=== PATIENT | male | born 1935 | race Caucasian/White ===

== ENCOUNTER 2016-11-06 08:42 | Inpatient (IN) | payer OTHER, MEDICARE ==
[2016-11-06 09:12] LABS: BASOPHIL 0.4 % (0-2.0); EOSINOPHIL 0.9 % (0-4.5); MCH 33.1 pg (25.7-33.7); MCHC 33.9 g/dl (32.0-35.9); MEAN CELL VOLUME 97.6 fl (80-96); MEAN PLT VOLUME 8.7 fl (7.5-11.1); NEUTROPHILS 72.4 % (42.8-82.8); PLATELET COUNT 207 K/MM3 (134-434); WHITE BLOOD COUNT 5.3 K/mm3 (4.0-10.8)
--- NOTE | 2016-11-06 09:13 | PDOC ---
History of Present Illness - General Chief Complaint: CVA/TIA Stated Complaint: LEFT HAND NUMBNESS Time Seen by Provider: 11/06/16 08:46 - History of Present Illness Initial Comments: 11/06/16 09:04 History somewhat limited by pt's confusion, but history mostly from patient with some help from . 80-year-old left handed male history of acoustic neuroma, prostate Ca in remission, hypertension, ADHD, insomnia presents with left hand weakness and numbness since he woke up this morning. The patient reports waking up at 5 AM and felt that he had normal use of his hand at that time. At that point, because of his insomnia, he admits to taking clonazepam, pristic and 2 shots of vodka and went back to sleep. He does not remember what time he went back to sleep. After he woke up this morning at approx 7:45a, the patient noticed his L hand was newly numb. He then went downstairs to his study where he tripped over a wastebasket and landed onto his L hip. Denies head strike or LOC. When his heard him fall, she went to the study and found him down on the ground. At that time he was having difficulty getting up due to possible leg weakness although he does not recall if it was in one leg. Currently reports only numbness in his L hand. Denies any CP, SOB, headache, abd pain, LE weakness or edema. Not on any anticoagulation, no aspirin. PMD: Dr. Milka Pickens [phone] Allergies: NKDA Social: daily etoh, approximately 2 shots vodka every day, no tobacco or illicits. NIH Stroke Scale - Last Known Well Date/Time & Onset Date Last Known Well: 11/06/16 Time Last Known Well: 05:00 - Initial Evaluation Level of consciousness: Alert Ask patient the month and their age: Answers both correctly Ask patient to open & close eyes; make fist and let go: Obeys both correctly Best gaze (horizontal eye movement): Normal Visual field testing: No visual field loss Facial paresis (Show teeth/raise eyebrows/close eyes tight): Normal symmetrical movement Motor Function: Left Arm: Normal Motor Function: Right Arm: Normal (extends arm 90 (or 45) degrees for 10 seconds without drift Motor Function: Left Leg: Normal (extends leg 30 degrees for 5 seconds without drift) Motor Function: Right Leg: Normal (extends leg 30 degrees for 5 seconds without drift) Limb Ataxia: No ataxia Sensory(Use pinprick test arms,legs,trunk,face/side to side): Mild to moderate decrease in sensation Best language (Describe picture, name items, read sentences): No Aphasia Dysarthria (read several words): Normal articulation Extinction and Inattention: No abnormality - Total Score NIH Stroke Scale Score: 1 Past History - Past Medical History Allergies/Adverse Reactions: Allergies Allergy/AdvReac Type Severity Reaction Status Date / Time No Known Allergies Allergy Verified 11/06/16 08:43 Home Medications: Ambulatory Orders Amphet Asp/Amphet/D-Amphet [Adderall 10 mg Tablet] 10 mg PO TID 08/21/13 Amphet Asp/Amphet/D-Amphet [Adderall 30 mg Tablet] 30 mg PO DAILY 08/21/13 Gabapentin [Neurontin -] 300 mg PO HS 08/21/13 Clonazepam 1.5 mg PO HS 09/04/14 Desvenlafaxine Succinate [Pristiq] 100 mg PO DAILY 09/04/14 Lisinopril 0 mg PO ASDIR 11/06/16 HTN: Yes Psychiatric Problems: Yes (ADD, DEPRESSION) - Immunization History Td Vaccination: No - Psycho/Social/Smoking Cessation Hx Anxiety: Yes Suicidal Ideation: No Smoking History: Former smoker Have you smoked in the past 12 months: No Number of Cigarettes Smoked Daily: 0 If you are a former smoker, when did you quit?: YEARS AGO Information on smoking cessation initiated: No Hx Alcohol Use: No Drug/Substance Use Hx: No Substance Use Type: None Review of Systems - Review of Systems Comments:: 11/06/16 12:27 GENERAL/CONSTITUTIONAL: No fever or chills. No weakness. HEAD, EYES, EARS, NOSE AND THROAT: No change in vision. No ear pain or discharge. No sore throat. CARDIOVASCULAR: No chest pain or shortness of breath. RESPIRATORY: No cough, wheezing, or hemoptysis. GASTROINTESTINAL: No nausea, vomiting, diarrhea or constipation. GENITOURINARY: No dysuria, frequency, or change in urination. MUSCULOSKELETAL: No joint or muscle swelling or pain. No neck or back pain. SKIN: No rash NEUROLOGIC: No headache, vertigo, loss of consciousness, +L handed weakness & numbness ENDOCRINE: No increased thirst. No abnormal weight change. HEMATOLOGIC/LYMPHATIC: No anemia, easy bleeding, or history of blood clots. ALLERGIC/IMMUNOLOGIC: No hives or skin allergy. *Physical Exam - Vital Signs Last Vital Signs Temp Pulse Resp BP Pulse Ox 87 18 115/86 100 11/06/16 08:43 11/06/16 08:43 11/06/16 08:43 11/06/16 08:43 - Physical Exam Comments: 11/06/16 12:28 GENERAL: Awake, alert, and fully oriented x3, in no acute distress. HEAD: No signs of trauma EYES: PERRLA, EOMI, sclera anicteric, conjunctiva clear ENT: Auricles normal inspection, hearing grossly normal, nares patent, oropharynx clear without exudates. Moist mucosa NECK: Normal ROM, supple, no lymphadenopathy, JVD, or masses LUNGS: Breath sounds equal, clear to auscultation bilaterally. No wheezes, and no crackles HEART: irregularly irregular, rate 91, no murmurs, rubs or gallops ABDOMEN: Soft, nontender, normoactive bowel sounds. No guarding, no rebound. No masses EXTREMITIES: Normal range of motion, no edema. No clubbing or cyanosis. No cords, erythema, or tenderness. brusing to L buttock with no deformities NEUROLOGICAL: Circumstantial speech , cranial nerves intact, negative pronator drift, 4+/5 L hand toy painter strength, +agraphia, 5/5 strength in remaining extremities, decreased sensation to light touch in L hand in all 5 fingers, normal sensation to light tough in remaining extremities, normal cerebellar exam , antalgic gait favoring LLE, normal reflexes and tone SKIN: L flank with new appearing superfical hemostatic 1cm abrasion, no bruising. Heart Score/ECG Review - ECG Intrepretation Comment:: 11/06/16 12:39 Twelve-lead EKG was performed and reviewed by me. Atrial fibrillation, rate 91. Normal axis. No ST elevations ED Treatment Course - LABORATORY CBC & Chemistry Diagram: 11/06/16 09:05 11/06/16 09:05 - RADIOLOGY Radiology Studies Ordered: Category Date Time Status CERVICAL SPINE CT W/O CONTR [CT] Stat CT Scan 11/06/16 09:[address] (STROKE) [CT] Stat CT Scan 11/06/16 08:47 Ordered CHEST X-RAY PORTABLE* [RAD] Stat Radiology 11/06/16 08:49 Ordered Medical Decision Making - Critical Care Time Total Critical Care Time (minutes): 45 Critical Care Statement: The care of this patient involved high complexity decision making to prevent further life threatening deterioration of the patient 's condition and/or to evaluate & treat vital organ system(s) failure or risk of failure. - Medical Decision Making 11/06/16 9:40 80yo M hx acoustic neuroma, prostate ca in remission, HTN, insomnia, ADHD p/w L hand numbness since waking up this morning at 7:45am. Last known normal was 5am. Stroke scale 1 for sensory deficit. Not a tpa candidate as almost out of window, and for low NIHSS. Pt also in new AFib on exam. Differential includes ischemic stroke vs hemorrhagic stroke vs radiculopathy. -[facility] -labs -IV -monitor -neuro c/s -call Dr. Pickens -admit 11/06/16 12:51 CT of the head negative for acute stroke however with some older disease. Patient was given full dose of aspirin and 80 mg of Lipitor. Patient was also given a tetanus shot given the new looking abrasion on his left flank. I spoke with Dr. Spencer from neurology who will see the patient today. I also ordered an MRI for further stroke evaluation. Chest x-ray was clear. Given the patient' s bruise on his left buttock and antalgic gait on arrival to the emergency department he is pending pelvis and femur films to evaluate for a fracture. Once the MRI is completed, the patient will require anticoagulation for his atrial fibrillation given his elevated chads2 score. I spoke with Dr. Pickens, the patient's primary care doctor and updated her on the patient. She agrees with our plan. The patient is admitted to Dr. Scott to a telemetry bed. *DC/Admit/Observation/Transfer Diagnosis at time of Disposition: Weakness of hand - Discharge Dispostion Condition at time of disposition: Stable Admit: Yes - Attestations Physician Attestion: 11/06/16 12:56 I, Dr. Clinton Lozoya MD, attest that this document has been prepared under my direction and personally reviewed by me in its entirety. I further attest, that it accurately reflects all work, treatment, procedures and medical decision -making performed by me.
[2016-11-06 09:26] LABS: INR 0.93 (0.82-1.09); PROTHROMBIN TIME (PATIENT) 10.4 SEC (10.2-13.0)
[2016-11-06] MEDS: SODIUM CHLORIDE 1,000 ML IV SCH (09:30)
[2016-11-06 09:55] LABS: ALBUMIN 3.8 g/dl (3.5-5.0); ALK PHOS 91 U/L (32-92); ANION GAP 9 (8-16); BILIRUBIN,TOTAL 0.7 mg/dl (0.2-1.0); CHOLESTEROL 213 mg/dl; CO2 27 mmol/L (22-28); CREATININE 1.2 mg/dl (0.6-1.3); GLUCOSE,RANDOM 114 mg/dl (74-106); SGOT/AST 19 U/L (10-42); SGPT/ALT 15 U/L (10-40); TOT PROT 6.5 g/dl (6.4-8.3)
[2016-11-06 09:58] LABS: TROPONIN I 0.02 ng/ml (0.00-0.05)
[2016-11-06 09:59] LABS: CPK 114 IU/L (39-308)
[2016-11-06] MEDS ORDERED: ATORVASTATIN CA 80 MG TABLET (FP) PO ONE (10:21)
[2016-11-06] MEDS ORDERED: ASPIRIN 325 MG TABLET PO ONE (10:21)
[2016-11-06] MEDS ORDERED: ATORVASTATIN CA 80 MG TABLET (FP) ONE (10:28)
[2016-11-06] MEDS ORDERED: ASPIRIN 81 MG CHEWABLE TABLETS ONE (10:28)
[2016-11-06 11:14] LABS: PH,URINE 7.5 (4.5-8); URINE APPEARANCE Clear; URINE BILIRUBIN Negative (NEGATIVE); URINE BLOOD Negative (NEGATIVE); URINE COLOR YELLOW; URINE GLUCOSE (UA) Negative (NEGATIVE); URINE KETONE Negative (NEGATIVE); URINE LEUK ESTERASE Negative (NEGATIVE); URINE NITRITE Negative (NEGATIVE); URINE PROTEIN Negative (NEGATIVE); URINE UROBILINOGEN 0.2 (0.2-1.0)
[2016-11-06 13:08] LABS: URINE MARIJUANA THC NEGATIVE ng/ml (CUTOFF=50)
--- NOTE | 2016-11-06 13:32 | HP ---
CHIEF COMPLAINT: left hand weakness PCP: Dr Pickens, Psychiatrist: Dr Abbasi, HISTORY OF PRESENT ILLNESS: Patient is a s 80 y/o male with a past medical history of acoustic neuroma, hypertension, anxiety, ADHD, insomnia, and prostate CA. Patient report upon awakening at 0500 on this date and report due to his insomnia, he took pristig, clonazem, and 2 shots of vodka. Patient reports awakening at 0745 and noticing left hand paresthesia and ambulated to his study in which he tripped over a waste basket and struck his left hip onto the floor. Patient is able to recall the full incident in detail. He reports being unable to stand due to his left lower extremity and as result was transported the emergency department. While in the emergency department, it was noted patient was unable to sign his name. ER course was notable for: (1) ekg aflutter with ventricular rate of 91 (2) mri of brain focal acute/subacute cortical and subcortical infarct in the right posterior frontal/parietal junction (3) mra of brain and neck, unremarkable no evidence of hemodynamic significant stenosis (4) Aspirin 325mg at 1020 (5) neurology, Dr Spencer consulted by ED physician Recent Travel: none PAST MEDICAL HISTORY: acoustic neuroma, hypertension, anxiety, ADHD, insomnia , and prostate CA. PAST SURGICAL HISTORY: Social History: Smoking: Alcohol: drinks 2 shots of vodka daily Drugs: Family History: Allergies No Known Allergies Allergy (Verified 11/06/16 08:43) HOME MEDICATIONS: Home Medications Medication Instructions Recorded Amphet Asp/Amphet/D-Amphet 10 mg PO TID 08/21/13 [Adderall 10 mg Tablet] Amphet Asp/Amphet/D-Amphet 30 mg PO DAILY 08/21/13 [Adderall 30 mg Tablet] Gabapentin [Neurontin -] 300 mg PO HS 08/21/13 Clonazepam 1.5 mg PO HS 09/04/14 Desvenlafaxine Succinate [Pristiq] 100 mg PO DAILY 09/04/14 Lisinopril 0 mg PO ASDIR 11/06/16 REVIEW OF SYSTEMS CONSTITUTIONAL: Absent: fever, chills, diaphoresis, generalized weakness, malaise, loss of appetite, weight change HEENT: Absent: rhinorrhea, nasal congestion, throat pain, throat swelling, difficulty swallowing, mouth swelling, ear pain, eye pain, visual changes CARDIOVASCULAR: Absent: chest pain, syncope, palpitations, irregular heart rate, lightheadedness , peripheral edema RESPIRATORY: Absent: cough, shortness of breath, dyspnea with exertion, orthopnea, wheezing, stridor, hemoptysis GASTROINTESTINAL: Absent: abdominal pain, abdominal distension, nausea, vomiting, diarrhea, constipation, melena, hematochezia GENITOURINARY: Absent: dysuria, frequency, urgency, hesitancy, hematuria, flank pain, genital pain MUSCULOSKELETAL: present: left hand weakness Absent: myalgia, arthralgia, joint swelling, back pain, neck pain SKIN: Absent: rash, itching, pallor HEMATOLOGIC/IMMUNOLOGIC: Absent: easy bleeding, easy bruising, lymphadenopathy, frequent infections ENDOCRINE: Absent: unexplained weight gain, unexplained weight loss, heat intolerance, cold intolerance NEUROLOGIC: Absent: headache, focal weakness or paresthesias, dizziness, unsteady gait, seizure, mental status changes, bladder or bowel incontinence PSYCHIATRIC: Absent: anxiety, depression, suicidal or homicidal ideation, hallucinations. PHYSICAL EXAMINATION Vital Signs - 24 hr 11/06/16 11/06/16 11/06/16 08:43 08:47 09:30 Pulse Rate 87 Pulse Rate [ 80 Apical] Respiratory 18 15 16 Rate Blood Pressure 115/86 Blood Pressure 129/99 [Left Arm] O2 Sat by Pulse 100 98 98 Oximetry (%) 11/06/16 11/06/16 11/06/16 09:43 09:54 10:35 Pulse Rate Pulse Rate [ 83 79 84 Apical] Respiratory 18 15 21 Rate Blood Pressure Blood Pressure 129/99 134/84 131/74 [Left Arm] O2 Sat by Pulse 98 99 96 Oximetry (%) 11/06/16 11:50 Pulse Rate Pulse Rate [ 83 Apical] Respiratory 15 Rate Blood Pressure Blood Pressure 140/78 [Left Arm] O2 Sat by Pulse 98 Oximetry (%) GENERAL: Awake, alert, and fully oriented, in no acute distress. HEAD: Normal with no signs of trauma. EYES: Pupils equal, round and reactive to light, extraocular movements intact, sclera anicteric, conjunctiva clear. No lid lag. EARS, NOSE, THROAT: Ears normal, nares patent, oropharynx clear without exudates. Moist mucous membranes. NECK: Normal range of motion, supple without lymphadenopathy, JVD, or masses. LUNGS: Breath sounds equal, clear to auscultation bilaterally. No wheezes, and no crackles. No accessory muscle use. HEART: irregular rhythm, rate 89, normal S1 and S2, 2/6 systolic murmur, rub or gallop. ABDOMEN: Soft, nontender, not distended, normoactive bowel sounds, no guarding, no rebound, no masses. No hepatomegaly or splenomegaly. MUSCULOSKELETAL: Normal range of motion at all joints. No bony deformities or tenderness. No CVA tenderness. UPPER EXTREMITIES: 2+ pulses, warm, well-perfused. No cyanosis. No clubbing. No peripheral edema. LOWER EXTREMITIES: 2+ pulses, warm, well-perfused. No calf tenderness. No peripheral edema, +agraphia, 4/5 upper extremity, 4/5 lower extremity NEUROLOGICAL: Cranial nerves II-XII intact. circumstantial speech. Normal gait. PSYCHIATRIC: Cooperative. Good eye contact. Appropriate mood and affect. SKIN: Warm, dry, normal turgor, no rashes or lesions noted, normal capillary refill. Laboratory Results - last 24 hr 11/06/16 11/06/16 11/06/16 08:55 09:00 09:05 WBC RBC Hgb Hct MCV MCH MCHC RDW Plt Count MPV Neutrophils % Lymphocytes % Monocytes % Eosinophils % Basophils % INR 0.93 L PTT (Actin FS) 27.4 Sodium Potassium Chloride Carbon Dioxide Anion Gap BUN Creatinine Creat Clearance w eGFR POC Glucometer [phone] Random Glucose Calcium Total Bilirubin AST ALT Alkaline Phosphatase Creatine Kinase Troponin I Total Protein Albumin Triglycerides Cholesterol Total LDL Cholesterol HDL Cholesterol Urine Color Urine Appearance Urine pH Ur Specific [place] Urine Protein Urine Glucose (UA) Urine Ketones Urine Blood Urine Nitrite Urine Bilirubin Urine Urobilinogen Ur Leukocyte Esterase Opiates Screen Methadone Screen Barbiturate Screen Phencyclidine Screen Ur Amphetamines Screen MDMA (Ecstasy) Screen Benzodiazepines Screen Cocaine Screen U Marijuana (THC) Screen Blood Type Antibody Screen 11/06/16 11/06/16 11/06/16 09:05 09:05 09:05 WBC 5.3 D RBC 4.65 Hgb 15.4 Hct 45.4 MCV 97.6 H MCH 33.1 MCHC 33.9 RDW 13.0 Plt Count 207 MPV 8.7 Neutrophils % 72.4 Lymphocytes % 17.1 D Monocytes % 9.2 D Eosinophils % 0.9 Basophils % 0.4 INR PTT (Actin FS) Sodium 134 L Potassium 4.2 Chloride 98 Carbon Dioxide 27 Anion Gap 9 BUN 30 H Creatinine 1.2 Creat Clearance w eGFR 58.40 POC Glucometer Random Glucose 114 H Calcium 9.0 Total Bilirubin 0.7 AST 19 ALT 15 Alkaline Phosphatase 91 Creatine Kinase 114 Troponin I 0.02 Total Protein 6.5 Albumin 3.8 Triglycerides 119 Cholesterol 213 Total LDL Cholesterol 129 H HDL Cholesterol 62 Urine Color Urine Appearance Urine pH Ur Specific [place] Urine Protein Urine Glucose (UA) Urine Ketones Urine Blood Urine Nitrite Urine Bilirubin Urine Urobilinogen Ur Leukocyte Esterase Opiates Screen Methadone Screen Barbiturate Screen Phencyclidine Screen Ur Amphetamines Screen MDMA (Ecstasy) Screen Benzodiazepines Screen Cocaine Screen U Marijuana (THC) Screen Blood Type O POSITIVE Antibody Screen Negative 11/06/16 11/06/16 11/06/16 11:01 11:01 11:57 WBC RBC Hgb Hct MCV MCH MCHC RDW Plt Count MPV Neutrophils % Lymphocytes % Monocytes % Eosinophils % Basophils % INR PTT (Actin FS) Sodium Potassium Chloride Carbon Dioxide Anion Gap BUN Creatinine Creat Clearance w eGFR POC Glucometer Random Glucose Calcium Total Bilirubin AST ALT Alkaline Phosphatase Creatine Kinase Troponin I Total Protein Albumin Triglycerides Cholesterol Total LDL Cholesterol HDL Cholesterol Urine Color Yellow Urine Appearance Clear Urine pH 7.5 Ur Specific [place] 1.015 Urine Protein Negative Urine Glucose (UA) Negative Urine Ketones Negative Urine Blood Negative Urine Nitrite Negative Urine Bilirubin Negative Urine Urobilinogen 0.2 Ur Leukocyte Esterase Negative Opiates Screen Negative Methadone Screen Negative Barbiturate Screen Negative Phencyclidine Screen Negative Ur Amphetamines Screen Positive MDMA (Ecstasy) Screen Negative Benzodiazepines Screen Negative Cocaine Screen Negative U Marijuana (THC) Screen Negative Blood Type O POSITIVE Antibody Screen ASSESSMENT/PLAN: F/E/N - low sodium diet - replete lyted prn - swallow study ppx - zantac - oob - pt eval dispo: requires inpatient telemetry admission for acute cva and new onset afib Problem List - Problem (1) CVA (cerebral vascular accident) Assessment/Plan: - MRI results reviewed, acute/subacute CVA noted, discussed with Dr Mayberry ( neuro) and Dr Mayberry will review MRI images and decide on anticoagulation - Neurology, Dr Mayberry, consulted and followed, will evaluate patient today - pending PT eval and swallow study - fall risk precautions Code(s): I63.9 - CEREBRAL INFARCTION, UNSPECIFIED (2) Hypertension Assessment/Plan: - allow for permissive hypertension - strict b/p monitoring. Code(s): I10 - ESSENTIAL (PRIMARY) HYPERTENSION (3) Afib Assessment/Plan: - rate controlled, continuos cardiac monitoring - echo ordered, cardiology contacted to be done by the end of day today - pending tsh - paralegal legal secretary, Dr Cesar, input appreciated Code(s): I48.91 - UNSPECIFIED ATRIAL FIBRILLATION Qualifiers: Atrial fibrillation type: unspecified Qualified Code(s): I48.91 - Unspecified atrial fibrillation (4) ADHD Assessment/Plan: - continue aderall, home dose, verified with patients pharmacist [facility] Code(s): F90.9 - ATTENTION-DEFICIT HYPERACTIVITY DISORDER, UNSPECIFIED TYPE (5) Anxiety Assessment/Plan: - continue clonopin, home dose, verified with patient's pharmacist Code(s): F41.9 - ANXIETY DISORDER, UNSPECIFIED (6) AA (alcohol abuse) Assessment/Plan: - pt reports drinks 2 shots of vodka daily - strict monitoring for alcohol withdrawl Code(s): F10.10 - ALCOHOL ABUSE, UNCOMPLICATED Visit type - Emergency Visit Emergency Visit: Yes ED Registration Date: 11/06/16 Care time: The patient presented to the Emergency Department on the above date and was hospitalized for further evaluation of their emergent condition. - New Patient This patient is new to me today: Yes Date on this admission: 11/06/16 - Critical Care Critical Care patient: Yes Total Critical Care Time (in minutes): 45 Critical Care Statement: The care of this patient involved high complexity decision making to prevent further life threatening deterioration of the patient 's condition and/or to evaluate & treat vital organ system(s) failure or risk of failure.
[2016-11-06] MEDS ORDERED: LISINOPRIL 5 MG TABLET (FP) PO SCH (13:45)
[2016-11-06] MEDS ORDERED: PATIENT'S OWN MEDICATION (NON-FORMULARY) (Amphet Asp/Amphet/D-Amphet [Adderall 10 Mg Table PO SCH (14:00)
[2016-11-06] MEDS ORDERED: ACETAMINOPHEN 325 MG TABLET (FP) PO PRN (14:46)
[2016-11-06 15:50] VITALS: BMI 25.2
--- NOTE | 2016-11-06 16:11 | CON.CARD ---
Cardiology Consult (text) - Consultation Consultation Note: CC: cva 80 yo with h/o htn, acoustic neuroma, prostate Ca in remission, ADHD, insomnia presents with left hand weakness and numbness/cva, found to have new onset aflutter. At 5 am woke up and couldn't get back to sleep --> took clonazepam, pristic and 2 shots of vodka. Woke up a few hours later with new Lt hand numbness and possibly leg weakness vs. abnormal gait --> had mechanical fall. In ER, noted to be in new rate controlled atrial flutter. patient is asx, denies h/o palps, presyncope/syncope, cp, sob, orthopnea, le edema, pnd. denies recent f/c/s, n/v/d, cough, h/a, congestion, rashes. States bp has not been well controlled, typically 150's. Recent depression over the past few months. drinking 1/2 bottle of vodka multiple times a week. denies h/o falls or bleeding. endorses adherence to medications. pmhx/pshx: per hpi Social: daily etoh, approximately 2 shots vodka every day, former tobacco or illicits. family hx: no hx of premature cad. ros: per hpi Ambulatory Orders Amphet Asp/Amphet/D-Amphet [Adderall 10 mg Tablet] 10 mg PO TID 08/21/13 Amphet Asp/Amphet/D-Amphet [Adderall 30 mg Tablet] 30 mg PO DAILY 08/21/13 Gabapentin [Neurontin -] 300 mg PO HS 08/21/13 Clonazepam 1 mg PO HS 09/04/14 Desvenlafaxine Succinate [Pristiq] 100 mg PO DAILY 09/04/14 Clonazepam [Klonopin -] 0.5 mg PO DAILY 11/06/16 Lisinopril 10 mg PO DAILY 11/06/16 Current Medications Acetaminophen (Tylenol -) 650 mg PO Q4H PRN PRN Reason: FEVER OR PAIN Clonazepam (Klonopin -) 0.5 mg PO DAILY [facility] Docusate Sodium (Colace -) 100 mg PO TID [facility] Sodium Chloride (Normal Saline -) 1,000 mls @ 42 mls/hr IV ASDIR [facility] Last Admin: 11/06/16 09:30 Dose: 42 mls/hr Lisinopril (Prinivil) 10 mg PO DAILY [facility] Non-Formulary Medication (Amphet Asp/Amphet/D-Amphet [Adderall 10 Mg Tablet]) 10 mg PO TID [facility] Non-Formulary Medication (Amphet Asp/Amphet/D-Amphet [Adderall 30 Mg Tablet]) 30 mg PO DAILY [facility] Ranitidine HCl (Zantac -) 150 mg PO BID [facility] Vital Signs - 24 hr 11/06/16 11/06/16 11/06/16 08:43 08:47 09:30 Temperature Pulse Rate 87 Pulse Rate [ 80 Apical] Respiratory 18 15 16 Rate Blood Pressure 115/86 Blood Pressure 129/99 [Left Arm] O2 Sat by Pulse 100 98 98 Oximetry (%) 11/06/16 11/06/16 11/06/16 09:43 09:54 10:35 Temperature Pulse Rate Pulse Rate [ 83 79 84 Apical] Respiratory 18 15 21 Rate Blood Pressure Blood Pressure 129/99 134/84 131/74 [Left Arm] O2 Sat by Pulse 98 99 96 Oximetry (%) 11/06/16 11/06/16 11/06/16 11:50 14:00 14:32 Temperature Pulse Rate Pulse Rate [ 83 82 86 Apical] Respiratory 15 15 16 Rate Blood Pressure Blood Pressure 140/78 136/103 136/87 [Left Arm] O2 Sat by Pulse 98 100 100 Oximetry (%) 11/06/16 11/06/16 15:40 15:50 Temperature 98.1 F Pulse Rate 74 Pulse Rate [ Apical] Respiratory 18 Rate Blood Pressure 143/81 Blood Pressure [Left Arm] O2 Sat by Pulse 100 Oximetry (%) Intake & Output 11/04/16 11/05/16 11/06/16 11/07/16 07:59 07:59 07:59 07:59 Intake Total 200 Output Total 250 Balance -50 Weight 197 lb 1.6 oz nad, calm tangential, occasionally slurring words/word finding difficulty ctab, nl effort irregular nl s1, s2 no mrg + bs soft ? distended, nontender. ext without e/c/c + dp/pt aaox3 no jaundice, diaphoresis. no carotid bruits CBC, BMP 11/06/16 09:05 11/06/16 09:05 Laboratory Tests 11/06/16 11/06/1611/06/17 08:55 09:05 09:05 INR 0.93 L PTT (Actin FS) 27.4 Total Bilirubin 0.7 AST 19 ALT 15 Alkaline Phosphatase 91 Ammonia Creatine Kinase 114 Troponin I 0.02 Albumin 3.8 Triglycerides 119 Cholesterol 213 Total LDL Cholesterol 129 H HDL Cholesterol 62 TSH Stool Occult Blood 11/06/16 11/06/16 11/06/16 14:40 15:00 15:00 INR PTT (Actin FS) Total Bilirubin AST ALT Alkaline Phosphatase Ammonia 33.68 H Creatine Kinase 105 Troponin I < 0.03 L Albumin Triglycerides Cholesterol Total LDL Cholesterol HDL Cholesterol TSH 0.63 Stool Occult Blood 11/06/16 15:00 INR PTT (Actin FS) Total Bilirubin AST ALT Alkaline Phosphatase Ammonia Creatine Kinase Troponin I Albumin Triglycerides Cholesterol Total LDL Cholesterol HDL Cholesterol TSH Stool Occult Blood Negative ekg: aflutter with variable block. no prolongation of the qt. no ischemic changes. tele rate controlled aflutter 80 yo with h/o htn, acoustic neuroma, prostate Ca in remission, ADHD, insomnia presents with left hand weakness and numbness/cva, found to have new onset aflutter. CVA in setting of new atrial flutter - discussed with neurology and no risk of hemorrhagic conversion at this time. Will start AC with eliquis this evening. patient denies h/o falls or bleeding, but would defer to outpatient pmd regarding safety/risk/benefit. - currently rate controlled off av ghada blockade. would add low dose metoprolol for ongoing suppression. Adjust lisinopril dose as needed to manage bp. - echo report pending. Of note, was notified that there is an echodensity on/ near mitral valve annulus. Current clinical picture not consistent with endocarditis. According to interpreting gis instructor, density not located near left atrial appendage. Will need to review report and possibly images when available in order to assess whether further imaging is needed on this admission (ie. JAYA). htn - meds as above. ADHD - ok to continue adderall at this time while vitals are being closely monitored. Would recommend discussing with his psychiatrist regarding efficacy of alternative regimens in this patient to avoid potential of adderall worsening underlying htn/rate control in setting of recent cva. Clearly mgm't of adhd is also of priority in light of his recent etoh abuse. If patient thought to be best treated with adderall, will need to be closely monitored from CV perspective. etoh - cessation counseling.
--- NOTE | 2016-11-06 16:22 | CON.NEURO ---
Consult - History of Present Illness History of Present Illness: 80 y/o male with a past medical history of acoustic neuroma, hypertension, anxiety, ADHD, insomnia, and prostate CA. Patient report upon awakening at 0500 on this date and report due to his insomnia, he took pristig, clonazem, and 2 shots of vodka. Patient reports awakening at 0745 and noticing left hand paresthesia and ambulated to his study in which he tripped over a waste basket and struck his left hip onto the floor. Patient is able to recall the full incident in detail. He reports being unable to stand due to his left lower extremity and as result was transported the emergency department. While in the emergency department, it was noted patient was unable to sign his name. noted to be in AFIB MRI + small cortical acute infarct R F/P area, chronic white matter changes - History Source History Provided By: Medical Record - Past Medical History Cardio/Vascular: Yes: AFIB, HTN - Alcohol/Substance Use Hx Alcohol Use: No - Smoking History Smoking history: Former smoker Have you smoked in the past 12 months: No Aproximately how many cigarettes per day: 0 If you are a former smoker, when did you quit?: YEARS AGO Home Medications - Allergies Allergies/Adverse Reactions: Allergies Allergy/AdvReac Type Severity Reaction Status Date / Time No Known Allergies Allergy Verified 11/06/16 08:43 - Home Medications Home Medications: Ambulatory Orders Amphet Asp/Amphet/D-Amphet [Adderall 10 mg Tablet] 10 mg PO TID 08/21/13 Amphet Asp/Amphet/D-Amphet [Adderall 30 mg Tablet] 30 mg PO DAILY 08/21/13 Gabapentin [Neurontin -] 300 mg PO HS 08/21/13 Clonazepam 1 mg PO HS 09/04/14 Desvenlafaxine Succinate [Pristiq] 100 mg PO DAILY 09/04/14 Clonazepam [Klonopin -] 0.5 mg PO DAILY 11/06/16 Lisinopril 10 mg PO DAILY 11/06/16 Physical Exam-Neuro Vital Signs: Vital Signs Temperature 98.1 F 11/06/16 15:40 Pulse Rate 74 11/06/16 15:40 Respiratory Rate 18 11/06/16 15:40 Blood Pressure 143/81 11/06/16 15:40 O2 Sat by Pulse Oximetry (%) 100 11/06/16 15:50 Labs: INR, PTT INR 0.93 (0.82-1.09) L 11/06/16 08:55 CBCD WBC 5.3 K/mm3 (4.0-10.8) D 11/06/16 09:05 RBC 4.65 M/mm3 (4.00-5.60) 11/06/16 09:05 Hgb 15.4 GM/dl (11.7-16.9) 11/06/16 09:05 Hct 45.4 % (35.4-49) 11/06/16 09:05 MCV 97.6 fl (80-96) H 11/06/16 09:05 MCHC 33.9 g/dl (32.0-35.9) 11/06/16 09:05 RDW 13.0 % (11.9-15.9) 11/06/16 09:05 Plt Count 207 K/MM3 (134-434) 11/06/16 09:05 MPV 8.7 fl (7.5-11.1) 11/06/16 09:05 CMP Sodium 134 mmol/L (136-145) L 11/06/16 09:05 Potassium 4.2 mmol/L (3.5-5.1) 11/06/16 09:05 Chloride 98 mmol/L (98-107) 11/06/16 09:05 Carbon Dioxide 27 mmol/L (22-28) 11/06/16 09:05 Anion Gap 9 (8-16) 11/06/16 09:05 BUN 30 mg/dl (7-18) H 11/06/16 09:05 Creatinine 1.2 mg/dl (0.6-1.3) 11/06/16 09:05 Creat Clearance w eGFR 58.40 (>60) 11/06/16 09:05 Calcium 9.0 mg/dl (8.4-10.2) 11/06/16 09:05 Total Bilirubin 0.7 mg/dl (0.2-1.0) 11/06/16 09:05 AST 19 U/L (10-42) 11/06/16 09:05 ALT 15 U/L (10-40) 11/06/16 09:05 Alkaline Phosphatase 91 U/L (32-92) 11/06/16 09:05 Total Protein 6.5 g/dl (6.4-8.3) 11/06/16 09:05 Albumin 3.8 g/dl (3.5-5.0) 11/06/16 09:05 - Neuro Exam Level Of Consciousness: Yes: Alert, Oriented to Person (EOMI, VFF, no facial, mild LUE drift, no focal weakness legs, sens: intact; reflexes redcued ) Imaging - Results MRI: Report Reviewed, Image Reviewed Assessment/Plan 10 y/o male with a past medical history of acoustic neuroma, hypertension, anxiety, ADHD, insomnia, and prostate CA. Patient report upon awakening at 0500 on this date , left arm weakness; noted to drag his leg; presented out of TPA window, low NIH. +suspicious cortical hand MRI + small cortical acute infarct R F/P area, chronic white matter changes noted to be in AFIB embolic stroke, likely secondary to AFIB, small cortical infarct, ok to start AC from neuro stand point,given size and presentaion, low likelihood of hem conversion ELiquis OK check ECHO check TSH, b12, a1c ETOH cessation --as per him, no HX of falls, ulcers PT/OT PRN Dr Spencer [phone]
--- NOTE | 2016-11-06 16:44 | HOSP ---
Physical Examination Vital Signs: Vital Signs Temperature 98.1 F 11/06/16 15:40 Pulse Rate 74 11/06/16 15:40 Respiratory Rate 18 11/06/16 15:40 Blood Pressure 143/81 11/06/16 15:40 O2 Sat by Pulse Oximetry (%) 100 11/06/16 15:50 Findings/Remarks: Spoke to Dr. Spencer who reviewed the MRI and stated ok to start anticogulation from his perspective. Awaiting callback from Dr. Cesar (left message with answering service) to discuss starting anticoagulation
[2016-11-06 16:47] LABS: CPK 105 IU/L (39-308)
[2016-11-06 17:01] LABS: TROPONIN I (DFP) < 0.03 ng/ml (0.03-0.50)
[2016-11-06 17:47] LABS: THYROID STIMULATING HORMONE 0.63 uIU/ml (0.358-3.74)
[2016-11-06] MEDS: DOCUSATE SODIUM 100 MG CAPSULE (FP) PO SCH (21:30)
[2016-11-06] MEDS: RANITIDINE HCL 150 MG TABLET (FP) PO SCH (21:30)
[2016-11-06] MEDS ORDERED: clonazePAM 0.5 MG TABLET PO SCH (22:00)
[2016-11-06] MEDS ORDERED: GABAPENTIN 300 MG CAPSULE (FP) PO SCH (22:00)
[2016-11-06] MEDS: APIXABAN 5 MG TABLET PO SCH (22:12)
[2016-11-07] MEDS: DOCUSATE SODIUM 100 MG CAPSULE (FP) PO SCH ×3 (06:46→21:25)
[2016-11-07 07:36] LABS: MCH 32.3 pg (25.7-33.7); MCHC 32.9 g/dl (32.0-35.9); MEAN PLT VOLUME 9.3 fl (7.5-11.1); PLATELET COUNT 205 K/MM3 (134-434); RDW 13.1 % (11.9-15.9); WHITE BLOOD COUNT 6.2 K/mm3 (4.0-10.8)
[2016-11-07 08:02] LABS: ANION GAP 7 (8-16); CALCIUM 8.7 mg/dl (8.4-10.2); CO2 26 mmol/L (22-28); CREATININE 1.1 mg/dl (0.6-1.3); GLUCOSE,RANDOM 116 mg/dl (74-106)
--- NOTE | 2016-11-07 09:28 | PN ---
Physical Exam: SUBJECTIVE: Patient seen and examined. Ambulated well with PT. OBJECTIVE: Vital Signs Period Temp Pulse Resp BP Sys/Hercules Pulse Ox Last 24 Hr 98.1 F-98.8 F 71-86 16-20 130-152/81-94 96-100 GENERAL: The patient is awake, alert, and fully oriented, in no acute distress. EYES: PERRL, extraocular movements intact, sclera anicteric, conjunctiva clear. No ptosis. ENT: Ears normal, nares patent, oropharynx clear without exudates, moist mucous membranes. NECK: Trachea midline, full range of motion, supple. LUNGS: Breath sounds equal, clear to auscultation bilaterally, no wheezes, no crackles, no accessory muscle use. HEART: Irregular rhythm, systolic murmur. ABDOMEN: Soft, nontender, nondistended, normoactive bowel sounds, no guarding, no rebound, no hepatosplenomegaly, no masses. EXTREMITIES: 2+ pulses, warm, well-perfused, no edema. NEUROLOGICAL: Cranial nerves II through XII grossly intact. Steady gait. 5/5 upper and lower extremity strength bilaterally. Mild expressive aphasia. Loss of fine motor control of left hand (patient is left hand-dominant). PSYCH: Normal mood, normal affect. SKIN: Warm, dry, normal turgor, no rashes or lesions noted Laboratory Results - last 24 hr 11/06/16 11/06/16 11/06/16 14:40 15:00 15:00 WBC RBC Hgb Hct MCV MCH MCHC RDW Plt Count MPV Sodium Potassium Chloride Carbon Dioxide Anion Gap BUN Creatinine Random Glucose Hemoglobin A1c % Calcium Magnesium Ammonia 33.68 H Creatine Kinase 105 Troponin I < 0.03 L Vitamin B12 342 TSH 0.63 Stool Occult Blood 11/06/16 11/06/16 11/07/16 15:00 15:00 07:10 WBC 6.2 RBC 4.71 Hgb 15.2 Hct 46.1 MCV 98.0 H MCH 32.3 MCHC 32.9 RDW 13.1 Plt Count 205 MPV 9.3 Sodium Potassium Chloride Carbon Dioxide Anion Gap BUN Creatinine Random Glucose Hemoglobin A1c % 5.8 Calcium Magnesium Ammonia Creatine Kinase Troponin I Vitamin B12 TSH Stool Occult Blood Negative 11/07/16 07:10 WBC RBC Hgb Hct MCV MCH MCHC RDW Plt Count MPV Sodium 135 L Potassium 4.1 Chloride 102 Carbon Dioxide 26 Anion Gap 7 L BUN 26 H Creatinine 1.1 Random Glucose 116 H Hemoglobin A1c % Calcium 8.7 Magnesium 2.0 Ammonia Creatine Kinase Troponin I Vitamin B12 TSH Stool Occult Blood Active Medications Generic Name Dose Route Start Last Admin Trade Name Freq PRN Reason Stop Dose Admin Acetaminophen 650 mg 11/06/16 14:46 Tylenol - PO Q4H PRN FEVER OR PAIN Apixaban 5 mg 11/06/16 22:00 11/06/16 22:12 Eliquis - PO 5 mg BID [facility] Administration Clonazepam 0.5 mg 11/07/16 10:00 Klonopin - PO DAILY [facility] Docusate Sodium 100 mg 11/06/16 22:00 11/07/16 06:46 Colace - PO 100 mg TID [facility] Administration Sodium Chloride 1,000 mls @ 42 mls/hr 11/06/16 09:00 11/06/16 09:30 Normal Saline - IV 42 mls/hr ASDIR [facility] Administration Lisinopril 10 mg 11/07/16 10:00 Prinivil PO DAILY [facility] Metoprolol Succinate 25 mg 11/07/16 10:00 Toprol Xl - PO DAILY [facility] Non-Formulary Medication 10 mg 11/06/16 14:00 Amphet Asp/Amphet/D-Amphet [Adderall 10 Mg Tablet] PO TID [facility] Non-Formulary Medication 30 mg 11/07/16 10:00 Amphet Asp/Amphet/D-Amphet [Adderall 30 Mg Tablet] PO DAILY [facility] Ranitidine HCl 150 mg 11/06/16 22:00 11/06/16 21:30 Zantac - PO 150 mg BID [facility] Administration EKG: aflutter with ventricular rate of 91 MRI Brain: focal acute/subacute cortical and subcortical infarct in the right posterior frontal/parietal junction MRA Brain/Neck: No evidence of hemodynamic significant stenosis Femur, hip/pelvis xrays: No acute pathology Cervical spine CT: DJD Echocardiogram: Normal LV systolic dysfunction. Left atrium moderately dilated. Right atrium mildly dilated. Mild mitral valve thicekning. Small echodensity, appears to be attached to the mitral annulus under the anterior leaflet and protruding to the left atrium of unclear etiology. Mild mitral regurgitation. Mild to moderate aortic sclerosis. ASSESSMENT/PLAN: 80 year old male admitted with new onset atrial flutter and acute CVA. 1. CVA -Monitor on telemetry -Eliquis 5mg bid -Atorvastatin 80mg hs -Will need home PT/OT -Cardiology and neurology following 2. HTN -Continue Torpol, lisinopril 3. Atrial flutter -Rate-controlled -Continue Toprol -Eliquis for AC 4. Abnormal echocardiogram -? Need for JAYA -Await cardiology recommendations 5. Anxiety/ADHS -Continue Adderall, Klonopin 6. Alcohol abuse -No evidence of withdrawal -Thiamine/MVI 7. F/E/N -Low sodium diet 8. Ppx -Therapeutic AC -No indication for GI ppx Dispo: Inpatient services. Visit type - Emergency Visit Emergency Visit: Yes ED Registration Date: 11/06/16 Care time: The patient presented to the Emergency Department on the above date and was hospitalized for further evaluation of their emergent condition. - New Patient This patient is new to me today: Yes Date on this admission: 11/07/16 - Critical Care Critical Care patient: No
[2016-11-07] MEDS ORDERED: [UNRECOGNIZED DRUG - OTHER] PO SCH (10:00)
[2016-11-07] MEDS ORDERED: DESVENLAFAXINE SUCCINATE 100 MG PO SCH (10:00)
[2016-11-07] MEDS ORDERED: AMPHET PO SCH (10:00)
[2016-11-07] MEDS ORDERED: D AMPHET PO SCH (10:00)
[2016-11-07] MEDS ORDERED: AMPHET ASP PO SCH (10:00)
[2016-11-07] MEDS: METOPROLOL SUCCINATE 25 MG TAB.SR.24H (FP) PO SCH (10:04)
[2016-11-07] MEDS: RANITIDINE HCL 150 MG TABLET (FP) PO SCH ×2 (10:04→21:25)
[2016-11-07] MEDS: clonazePAM 0.5 MG TABLET PO SCH (10:04)
[2016-11-07] MEDS: APIXABAN 5 MG TABLET PO SCH ×2 (10:04→21:25)
[2016-11-07] MEDS: LISINOPRIL 10 MG TABLET (FP) PO SCH (10:04)
[2016-11-07] MEDS: SODIUM CHLORIDE 1,000 ML IV SCH (10:05)
--- NOTE | 2016-11-07 11:36 | PN ---
Physical Exam: SUBJECTIVE: Patient seen and examined. OBJECTIVE: Ambulated well with PT today. Vital Signs Period Temp Pulse Resp BP Sys/Hercules Pulse Ox Last 24 Hr 98.1 F-98.8 F 71-86 16-20 130-152/81-94 96-100 GENERAL: The patient is awake, alert, and fully oriented, in no acute distress. HEAD: Normal with no signs of trauma. EYES: PERRL, extraocular movements intact, sclera anicteric, conjunctiva clear. No ptosis. ENT: Ears normal, nares patent, oropharynx clear without exudates, moist mucous membranes. NECK: Trachea midline, full range of motion, supple. LUNGS: Breath sounds equal, clear to auscultation bilaterally, no wheezes, no crackles, no accessory muscle use. HEART: Regular rate and rhythm, S1, S2 without murmur, rub or gallop. ABDOMEN: Soft, nontender, nondistended, normoactive bowel sounds, no guarding, no rebound, no hepatosplenomegaly, no masses. EXTREMITIES: 2+ pulses, warm, well-perfused, no edema. NEUROLOGICAL: Cranial nerves II through XII grossly intact. Normal speech, steady gait. PSYCH: Normal mood, normal affect. SKIN: Warm, dry, normal turgor, no rashes or lesions noted Laboratory Results - last 24 hr 11/06/16 11/06/16 11/06/16 14:40 15:00 15:00 WBC RBC Hgb Hct MCV MCH MCHC RDW Plt Count MPV Sodium Potassium Chloride Carbon Dioxide Anion Gap BUN Creatinine Random Glucose Hemoglobin A1c % Calcium Magnesium Ammonia 33.68 H Creatine Kinase 105 Troponin I < 0.03 L Vitamin B12 342 TSH 0.63 Stool Occult Blood 11/06/16 11/06/16 11/07/16 15:00 15:00 07:10 WBC 6.2 RBC 4.71 Hgb 15.2 Hct 46.1 MCV 98.0 H MCH 32.3 MCHC 32.9 RDW 13.1 Plt Count 205 MPV 9.3 Sodium Potassium Chloride Carbon Dioxide Anion Gap BUN Creatinine Random Glucose Hemoglobin A1c % 5.8 Calcium Magnesium Ammonia Creatine Kinase Troponin I Vitamin B12 TSH Stool Occult Blood Negative 11/07/16 07:10 WBC RBC Hgb Hct MCV MCH MCHC RDW Plt Count MPV Sodium 135 L Potassium 4.1 Chloride 102 Carbon Dioxide 26 Anion Gap 7 L BUN 26 H Creatinine 1.1 Random Glucose 116 H Hemoglobin A1c % Calcium 8.7 Magnesium 2.0 Ammonia Creatine Kinase Troponin I Vitamin B12 TSH Stool Occult Blood Active Medications Generic Name Dose Route Start Last Admin Trade Name Dana PRN Reason Stop Dose Admin Acetaminophen 650 mg 11/06/16 14:46 11/07/16 10:06 Tylenol - PO 650 mg Q4H PRN Administration FEVER OR PAIN Apixaban 5 mg 11/06/16 22:00 11/07/16 10:04 Eliquis - PO 5 mg BID [facility] Administration Clonazepam 0.5 mg 11/07/16 10:00 11/07/16 10:04 Klonopin - PO 0.5 mg DAILY [facility] Administration Docusate Sodium 100 mg 11/06/16 22:00 11/07/16 06:46 Colace - PO 100 mg TID [facility] Administration Sodium Chloride 1,000 mls @ 42 mls/hr 11/06/16 09:00 11/07/16 10:05 Normal Saline - IV 42 mls/hr ASDIR [facility] Administration Lisinopril 10 mg 11/07/16 10:00 11/07/16 10:04 Prinivil PO 10 mg DAILY [facility] Administration Metoprolol Succinate 25 mg 11/07/16 10:00 11/07/16 10:04 Toprol Xl - PO 25 mg DAILY [facility] Administration Non-Formulary Medication 10 mg 11/06/16 14:00 Amphet Asp/Amphet/D-Amphet [Adderall 10 Mg Tablet] PO TID [facility] Non-Formulary Medication 30 mg 11/07/16 10:00 Amphet Asp/Amphet/D-Amphet [Adderall 30 Mg Tablet] PO DAILY [facility] Ranitidine HCl 150 mg 11/06/16 22:00 11/07/16 10:04 Zantac - PO 150 mg BID [facility] Administration ASSESSMENT/PLAN: Visit type - Emergency Visit Emergency Visit: Yes ED Registration Date: 11/06/16 Care time: The patient presented to the Emergency Department on the above date and was hospitalized for further evaluation of their emergent condition. - New Patient This patient is new to me today: Yes Date on this admission: 11/07/16 - Critical Care Critical Care patient: No
--- NOTE | 2016-11-07 12:59 | PN ---
Progress Note, Physician History of Present Illness: No events overnight Deficits improving Tele with Aflutter and rate controlled Started on Eliquis - Current Medication List Current Medications: Active Medications Acetaminophen (Tylenol -) 650 mg PO Q4H PRN PRN Reason: FEVER OR PAIN Last Admin: 11/07/16 10:06 Dose: 650 mg Apixaban (Eliquis -) 5 mg PO BID [facility] Last Admin: 11/07/16 10:04 Dose: 5 mg Clonazepam (Klonopin -) 0.5 mg PO DAILY [facility] Last Admin: 11/07/16 10:04 Dose: 0.5 mg Docusate Sodium (Colace -) 100 mg PO TID [facility] Last Admin: 11/07/16 06:46 Dose: 100 mg Sodium Chloride (Normal Saline -) 1,000 mls @ 42 mls/hr IV ASDIR [facility] Last Admin: 11/07/16 10:05 Dose: 42 mls/hr Lisinopril (Prinivil) 10 mg PO DAILY [facility] Last Admin: 11/07/16 10:04 Dose: 10 mg Metoprolol Succinate (Toprol Xl -) 25 mg PO DAILY [facility] Last Admin: 11/07/16 10:04 Dose: 25 mg Non-Formulary Medication (Amphet Asp/Amphet/D-Amphet [Adderall 10 Mg Tablet]) 10 mg PO TID [facility] Non-Formulary Medication (Amphet Asp/Amphet/D-Amphet [Adderall 30 Mg Tablet]) 30 mg PO DAILY [facility] Ranitidine HCl (Zantac -) 150 mg PO BID [facility] Last Admin: 11/07/16 10:04 Dose: 150 mg - Objective Vital Signs: Vital Signs Temperature 98.8 F 11/07/16 06:00 Pulse Rate 71 11/07/16 06:00 Respiratory Rate 18 11/07/16 08:38 Blood Pressure 152/94 11/07/16 06:00 O2 Sat by Pulse Oximetry (%) 97 11/07/16 08:38 Constitutional: Yes: No Distress, Calm Eyes: Yes: WNL HENT: Yes: WNL Neck: Yes: WNL, Supple Cardiovascular: Yes: Regular Rate and Rhythm (No murmurs), Pulse Irregular Respiratory: Yes: Regular, CTA Bilaterally Gastrointestinal: Yes: WNL Musculoskeletal: Yes: WNL Extremities: Yes: WNL Edema: No Labs: CBC, BMP 11/07/16 07:10 11/07/16 07:10 INR, PTT INR 0.93 (0.82-1.09) L 11/06/16 08:55 Assessment/Plan 80 yo with h/o htn, acoustic neuroma, prostate Ca in remission, ADHD, insomnia presents with left hand weakness and numbness/cva, found to have new onset aflutter. CVA in setting of new atrial flutter/fib - discussed with neurology and no risk of hemorrhagic conversion at this time. Will start AC with eliquis this evening. patient denies h/o falls or bleeding, but would defer to outpatient pmd regarding safety/risk/benefit. - currently rate controlled off av ghada blockade. would add low dose metoprolol for ongoing suppression. Adjust lisinopril dose as needed to manage bp. - echo report pending. Of note, was notified that there is an echodensity on/ near mitral valve annulus. Current clinical picture not consistent with endocarditis. According to interpreting pond scaler, density not located near left atrial appendage. Will need to review report and possibly images when available in order to assess whether further imaging is needed on this admission (ie. JAYA). -Low suspicion for endocarditis here but will check blood Cx. -Will ronny to wait until Wednesday for PT -Continue Eliquis htn - meds as above. ADHD - ok to continue adderall at this time while vitals are being closely monitored. Would recommend discussing with his psychiatrist regarding efficacy of alternative regimens in this patient to avoid potential of adderall worsening underlying htn/rate control in setting of recent cva. Clearly mgm't of adhd is also of priority in light of his recent etoh abuse. If patient thought to be best treated with adderall, will need to be closely monitored from CV perspective. etoh - cessation counseling.
[2016-11-07] MEDS ORDERED: MULTIVITAMINS (DAILY MVI) TABLET (FP) PO ONE (13:05)
[2016-11-07] MEDS: THIAMINE HCL 100 MG TABLET (FP) PO SCH (21:25)
[2016-11-08] MEDS: DOCUSATE SODIUM 100 MG CAPSULE (FP) PO SCH ×3 (06:20→22:00)
[2016-11-08 08:55] LABS: BASOPHIL 0.1 % (0-2.0); EOSINOPHIL 0.5 % (0-4.5); MCH 32.8 pg (25.7-33.7); MCHC 33.4 g/dl (32.0-35.9); MEAN CELL VOLUME 98.2 fl (80-96); MEAN PLT VOLUME 9.5 fl (7.5-11.1); NEUTROPHILS 75.8 % (42.8-82.8); PLATELET COUNT 194 K/MM3 (134-434); RDW 13.1 % (11.9-15.9); WHITE BLOOD COUNT 5.6 K/mm3 (4.0-10.8)
[2016-11-08] MEDS: METOPROLOL SUCCINATE 25 MG TAB.SR.24H (FP) PO SCH (09:08)
[2016-11-08] MEDS: RANITIDINE HCL 150 MG TABLET (FP) PO SCH ×2 (09:08→21:28)
[2016-11-08] MEDS: LISINOPRIL 10 MG TABLET (FP) PO SCH (09:08)
[2016-11-08] MEDS: APIXABAN 5 MG TABLET PO SCH ×2 (09:08→21:28)
[2016-11-08] MEDS: SODIUM CHLORIDE 1,000 ML IV SCH (09:09)
[2016-11-08] MEDS: clonazePAM 0.5 MG TABLET PO SCH (09:09)
--- NOTE | 2016-11-08 09:16 | DS ---
Physical Exam: SUBJECTIVE: Patient seen and examined. Still having trouble with fine motor skills in left (dominant) hand, otherwise no complaints. OBJECTIVE: Vital Signs Period Temp Pulse Resp BP Sys/Hercules Pulse Ox Last 24 Hr 98.3 F-98.8 F 54-68 16-18 132-140/75-80 95-98 PHYSICAL EXAM GENERAL: The patient is awake, alert, and fully oriented, in no acute distress. HEAD: Normal with no signs of trauma. EYES: PERRL, extraocular movements intact, sclera anicteric, conjunctiva clear. ENT: Ears normal, nares patent, oropharynx clear without exudates, moist mucous membranes. NECK: Trachea midline, full range of motion, supple. LUNGS: Breath sounds equal, clear to auscultation bilaterally, no wheezes, no crackles, no accessory muscle use. HEART: Irregular rhythm, systolic murmur. ABDOMEN: Soft, nontender, nondistended, normoactive bowel sounds, no guarding, no rebound, no hepatosplenomegaly, no masses. EXTREMITIES: 2+ pulses, warm, well-perfused, no edema. NEUROLOGICAL: Cranial nerves II through XII grossly intact. Normal speech, steady gait. Agraphia left (dominant) hand. 5/5 upper and lower extremity strength bilaterally. PSYCH: Normal mood, normal affect. SKIN: Warm, dry, normal turgor, no rashes or lesions noted. LABS Laboratory Results - last 24 hr 11/08/16 06:00 WBC 5.6 RBC 4.51 Hgb 14.8 Hct 44.3 MCV 98.2 H MCH 32.8 MCHC 33.4 RDW 13.1 Plt Count 194 MPV 9.5 Neutrophils % 75.8 Lymphocytes % 16.1 Monocytes % 7.5 Eosinophils % 0.5 Basophils % 0.1 HOSPITAL COURSE: This is a 80 y/o male with a history of acoustic neuroma, HTN, anxiety, ADHD, insomnia, and prostate CA admitted on 11/06 with left hand parasthesia and left leg weakness causing a fall. He was noted in the ED to be unable to sign his name (he is left hand dominant). ED course was notable for: (1) EKG showing atrial flutter, new onset (2) MRI brain showing focal acute/subacute cortical and subcortical infarct in the right posterior frontal/parietal junction (3) MRA brain and neck unremarkable with no evidence of hemodynamic significant stenosis The patient was outside the window for tPA administration. He was treated with ASA, Atorvastatin, and Metoprolol was admitted to telemetry. In consultation with neurology and cardiology, he was started on Eliquis. Echocardiogram showed a small echodensity attached to the mitral annulus under the anterior leaflet protruding into the left atrium of uncertain etiology. The patient exhibited no symptoms of endocarditis. Blood cultures were drawn and sent. Cardiology discussed JAYA at length with the patient and together they decided not to pursue it. Cardiology recommends repeat TTE in 2-3 weeks. His deficits improved and he has been able to ambulate with PT. Plan: -Start Eliquis, Metoprolol, and Atorvastatin as outpatient -Home PT/OT -PCP, Cardiology, neurology followup Return precautions reviewed. Date of Admission:11/06/16 Date of Discharge: 11/09/16 Minutes to complete discharge: 45 Discharge Summary Reason For Visit: CVA Current Active Problems AA (alcohol abuse) (Acute) ADHD (Acute) Afib (Acute) Anxiety (Acute) CVA (cerebral vascular accident) (Acute) Hand weakness (Acute) Hypertension (Acute) Condition: Stable - Instructions Diet, Activity, Other Instructions: You were treated for stroke and new onset atrial fibrillation/flutter. Continue all of your prescribed medications, with the following changes: -ADD Eliquis twice daily to thin the blood/prevent stroke -ADD Atorvastatin at night for cholesterol control -ADD Metoprolol once daily to control your blood pressure and heart rate. Follow up with your primary care doctor as well as the drug counselor and neurologist (referrals enclosed) next week. You will need a repeat echocardiogram in 2-3 weeks. Continue physical and occupational therapy at home. Return here for palpitations, chest pain, shortness of breath, severe headaches , weakness, change in speech, or any other concerning symptoms. Referrals: Evangelist Spencer DO [Staff Physician] - 1 Week Milka Pickens MD [Primary Care Provider] - Disposition: HOME - Home Medications Comprehensive Discharge Medication List: Ambulatory Orders Amphet Asp/Amphet/D-Amphet [Adderall 10 mg Tablet] 10 mg PO TID 08/21/13 Amphet Asp/Amphet/D-Amphet [Adderall 30 mg Tablet] 30 mg PO DAILY 08/21/13 Gabapentin [Neurontin -] 300 mg PO HS 08/21/13 Clonazepam 1 mg PO HS 09/04/14 Desvenlafaxine Succinate [Pristiq] 100 mg PO DAILY 09/04/14 Clonazepam [Klonopin -] 0.5 mg PO DAILY 11/06/16 Lisinopril 10 mg PO DAILY 11/06/16 This patient is new to me today: No Emergency Visit: Yes ED Registration Date: 11/06/16 Care time: The patient presented to the Emergency Department on the above date and was hospitalized for further evaluation of their emergent condition. Critical Care patient: No - Discharge Referral Referred to [facility] Med P.C.: No
[2016-11-08 09:33] LABS: ANION GAP 10 (8-16); CALCIUM 8.6 mg/dl (8.4-10.2); CO2 25 mmol/L (22-28); CREATININE 1.1 mg/dl (0.6-1.3); GLUCOSE,RANDOM 104 mg/dl (74-106)
[2016-11-08] MEDS: THIAMINE HCL 100 MG TABLET (FP) PO SCH (21:28)
[2016-11-08] MEDS ORDERED: ATORVASTATIN CA 40 MG TABLET (FP) PO SCH (22:00)
[2016-11-09] MEDS ORDERED: PT OWN MED DRAWER 7, Y5N ONE (04:18)
[2016-11-09 05:55] VITALS: TEMP 98
[2016-11-09] MEDS: DOCUSATE SODIUM 100 MG CAPSULE (FP) PO SCH ×2 (06:25→13:18)
[2016-11-09 08:05] VITALS: BP 118/68; PULSE 64
[2016-11-09] MEDS: RANITIDINE HCL 150 MG TABLET (FP) PO SCH (10:00)
[2016-11-09] MEDS: clonazePAM 0.5 MG TABLET PO SCH (10:00)
[2016-11-09] MEDS: APIXABAN 5 MG TABLET PO SCH (10:00)
[2016-11-09] MEDS: LISINOPRIL 10 MG TABLET (FP) PO SCH (10:00)
[2016-11-09] MEDS: METOPROLOL SUCCINATE 25 MG TAB.SR.24H (FP) PO SCH (10:00)
--- NOTE | 2016-11-09 13:22 | PN ---
Progress Note (short form) - Note Progress Note: patient is eating regular diet and drinking thin liquids with no difficulty, speech and swallow evaluation was cancelled. Problem List - Problems (1) CVA (cerebral vascular accident) Code(s): I63.9 - CEREBRAL INFARCTION, UNSPECIFIED (2) Hypertension Code(s): I10 - ESSENTIAL (PRIMARY) HYPERTENSION (3) Afib Code(s): I48.91 - UNSPECIFIED ATRIAL FIBRILLATION Qualifiers: Atrial fibrillation type: unspecified Qualified Code(s): I48.91 - Unspecified atrial fibrillation (4) ADHD Code(s): F90.9 - ATTENTION-DEFICIT HYPERACTIVITY DISORDER, UNSPECIFIED TYPE (5) Anxiety Code(s): F41.9 - ANXIETY DISORDER, UNSPECIFIED (6) AA (alcohol abuse) Code(s): F10.10 - ALCOHOL ABUSE, UNCOMPLICATED Visit type - Emergency Visit Emergency Visit: Yes ED Registration Date: 11/06/16 Care time: The patient presented to the Emergency Department on the above date and was hospitalized for further evaluation of their emergent condition. - New Patient This patient is new to me today: No - Critical Care Critical Care patient: No - Discharge Referral Referred to [facility] Med P.C.: No
--- NOTE | 2016-11-10 10:37 | EKG ---
Test Reason : Blood Pressure : / mmHG Vent. Rate : 083 BPM Atrial Rate : 357 BPM P-R Int : 000 ms QRS Dur : 094 ms QT Int : 370 ms P-R-T Axes : 091 042 058 degrees QTc Int : 434 ms ATRIAL FLUTTER WITH VARIABLE A-V BLOCK vs coarse afib NO PREVIOUS ECGS AVAILABLE Confirmed by MD AGAPITO, INDIRA ([id number]) on 11/10/2016 10:36:49 AM Referred By: PARVIN Confirmed By:INDIRA ALTMAN MD
== END 2016-11-09 14:10 | disposition home health service (06) | DRG 65 ==
LOC: FER 08:42 → SUPCPDRO 08:42 → FM/S 14:10
PROVIDERS: ADMIT Internal Medicine; ATTEND Nurse Practitioner Family
DX: I63.8 Other cerebral infarction (principal); I48.92 Unspecified atrial flutter; E87.1 Hypo-osmolality and hyponatremia; R29.701 NIHSS score 1; F90.9 Attention-deficit hyperactivity disorder, unspecified type; I10 Essential (primary) hypertension; G47.09 Other insomnia; Z85.46 Personal history of malignant neoplasm of prostate; Z87.891 Personal history of nicotine dependence; D33.3 Benign neoplasm of cranial nerves; I48.91 Unspecified atrial fibrillation; F41.8 Other specified anxiety disorders; F10.10 Alcohol abuse, uncomplicated; E86.1 Hypovolemia
CPT/HCPCS: 36415; 70450-TC; 70544-TC; 70547-TC; 70551-TC; 71010-TC; 72125-TC; 72170-TC; 73552-TC-LT; 80048; 80053; 80307; 81003; 82140; 82272; 82465; 82607; 83036; 83718; 83721; 83735; 84443; 84478; 84484; 85025; 85027; 85610; 85730; 86850; 86900; 86901; 87040; 93005; 93306-TC; 97116-GP; 99285-25

== ENCOUNTER 2017-03-13 10:06 | Emergency (ER) | payer OTHER, MEDICARE ==
--- NOTE | 2017-03-13 10:16 | PDOC ---
History of Present Illness - General Chief Complaint: Pain, Acute Stated Complaint: NECK PAIN Time Seen by Provider: 03/13/17 10:10 History Source: Patient Exam Limitations: No Limitations - History of Present Illness Initial Comments: 03/13/17 10:12 81 y/o male with pain at the base of skull, neck area for last 2 days. Patient denies fall, trauma, headache or weakness. Started on Bactrim for recent UTI. No fever or chills. No SOB or chest pain. The pain is worse with movement of the neck. Denies rash or any procedures recently. No lifting. Cannot recall any reason why his neck would be hurting him. No blurred vision. Only took a Tylenol for the pain. Severity: moderate Associated Symptoms: denies: chest pain, cough, diaphoresis, fever/chills, headaches, rash, shortness of breath, weakness Past History - Past Medical History Allergies/Adverse Reactions: Allergies Allergy/AdvReac Type Severity Reaction Status Date / Time No Known Allergies Allergy Verified 03/13/17 10:24 Home Medications: Ambulatory Orders Amphet Asp/Amphet/D-Amphet [Adderall 30 mg Tablet] 30 mg PO DAILY 08/21/13 Desvenlafaxine Succinate [Pristiq] 100 mg PO DAILY 09/04/14 Lisinopril 10 mg PO DAILY 11/06/16 Apixaban [Eliquis -] 5 mg PO BID #60 tablet 11/08/16 Atorvastatin Ca [Lipitor] 40 mg PO HS #30 tablet 11/08/16 Cholecalciferol (Vitamin D3) [Vitamin D3] 1,000 unit PO DAILY 03/13/17 Clonazepam 1 mg PO HS 03/13/17 Cyclobenzaprine HCl 5 mg PO TID #10 tablet 03/13/17 Gabapentin [Neurontin] 600 mg PO HS PRN 03/13/17 Metoprolol Tartrate [Lopressor -] 25 mg PO BID 03/13/17 Sulfamethoxazole/Trimethoprim [Bactrim Ds Tablet] 1 each PO BID 03/13/17 HTN: Yes Psychiatric Problems: Yes (ADD, DEPRESSION) - Immunization History Td Vaccination: No - Suicide/Smoking/Psychosocial Hx Smoking History: Former smoker Have you smoked in the past 12 months: No Number of Cigarettes Smoked Daily: 0 If you are a former smoker, when did you quit?: YEARS AGO Hx Alcohol Use: No Drug/Substance Use Hx: No Substance Use Type: Alcohol Hx Substance Use Treatment: No Review of Systems - Review of Systems Able to Perform ROS?: Yes Is the patient limited Sami proficient: No Constitutional: No: Chills, Diaphoresis, Fever, Malaise HEENTM: No: Blurred Vision Respiratory: No: Cough, Shortness of Breath Cardiac (ROS): No: Chest Pain, Palpitations ABD/GI: No: Nausea, Vomiting : No: Dysuria Musculoskeletal: Yes: Neck Pain. No: Back Pain Neurological: No: Headache, Numbness, Paresthesia, Tingling All Other Systems: Reviewed and Negative *Physical Exam - Physical Exam General Appearance: Yes: Nourished, Appropriately Dressed, Mild Distress HEENT: positive: EOMI, ALEJANDRA, Normal ENT Inspection, Normal Voice, Symmetrical, Pharynx Normal Neck: positive: Tender (tenderness to the spinous process and pravertebral muscles at base of skull, increase pain with movement of neck noted, no swelling or redness or rash noted), Trachea midline, Normal Thyroid, Supple. negative: Rigid (no meningeal signs or Kernig's sign or Brudzinki sign noted), Carotid bruit Respiratory/Chest: positive: Lungs Clear, Normal Breath Sounds. negative: Chest Tender, Respiratory Distress Cardiovascular: positive: Regular Rhythm, Regular Rate, S1, S2, Edema (no swelling noted, chronic skin changes noted). negative: JVD, Murmur Vascular Pulses: Femoral (R): 4+, Femoral (L): 4+, Carotid (R): 4+, Carotid (L) : 4+, Dorsalis-Pedis (R): 4+, Doralis-Pedis (L): 4+ Gastrointestinal/Abdominal: positive: Normal Bowel Sounds, Flat, Soft. negative : Tender, Organomegaly, Pulsatile Mass Lymphatic: negative: Adenopathy, Tenderness, Other Musculoskeletal: positive: Normal Inspection. negative: CVA Tenderness Extremity: positive: Normal Capillary Refill, Normal Inspection, Normal Range of Motion Integumentary: positive: Normal Color, Dry, Warm Neurologic: positive: operating theatre technician II-XII NML intact, Fully Oriented, Alert, Normal Mood/ Affect, Normal Response, Motor Strength 5/5 (strength 5+/5 b/l in UE and LE, no focal deficits noted, neg SLR test b/l) ED Treatment Course - LABORATORY CBC & Chemistry Diagram: 03/13/17 10:23 - ADDITIONAL ORDERS Additional order review: 03/13/17 10:18 Pt with neck pain for 2 days, no fall or trauma or fever noted. Denies headache. Will give pain medication and check imaging studies. Family is in agreement with plan. 03/13/17 12:18 WBC elevated possible from pain/stress. CT showed no abscess or soft tissue mass 03/13/17 12:27 Pt is able to ambulate, will discharge home with muscle relaxant Family is in agreement with plan. - RADIOLOGY Radiograph Interpretation: 03/13/17 12:17 CT cervical spine: stenosis, DDD, no fracture unchanged from prior study Pt is feeling a little better, will discharge home with muscle relaxant Pt is in agreement with plan *DC/Admit/Observation/Transfer Diagnosis at time of Disposition: Torticollis Spinal stenosis Qualifiers: Spinal region: cervical Qualified Code(s): M48.02 - Spinal stenosis, cervical region - Discharge Dispostion Disposition: HOME Condition at time of disposition: Fair Admit: No - Referrals Referrals: Milka Pickens MD [Primary Care Provider] - - Patient Instructions Printed Discharge Instructions: Spinal Stenosis Additional Instructions: Rest, fluids, ice Motrin Flexeril 5 mg 3x/day as needed If worsen, fever, chill, or more pain return to ER - Post Discharge Activity
[2017-03-13 10:28] LABS: BASO % 0.2 % (0-2.0); HEMATOCRIT 43.5 % (35.4-49); HEMOGLOBIN 14.2 GM/dl (11.7-16.9); LYMPH % 3.3 % (8-40); MCH 31.1 pg (25.7-33.7); MCHC 32.6 g/dl (32.0-35.9); MEAN CELL VOLUME 95.5 fl (80-96); MEAN PLT VOLUME 9.3 fl (7.5-11.1); NEUT % 88.5 % (42.8-82.8); PLATELET COUNT 207 K/MM3 (134-434); RBC 4.55 M/mm3 (4.00-5.60); RDW 13.3 % (11.9-15.9); WHITE BLOOD COUNT 14.4 K/mm3 (4.0-10.8)
[2017-03-13 10:38] VITALS: BP 149/102; PULSE 108; TEMP 98.2; BMI 24.9
== END 2017-03-13 12:40 | disposition home or self-care (01) ==
LOC: FER 10:06
DX: M43.6 Torticollis (principal); M48.02 Spinal stenosis, cervical region; I10 Essential (primary) hypertension; F98.8 Other specified behavioral and emotional disorders with onset usually occurring in childhood and adolescence; Z87.891 Personal history of nicotine dependence
CPT/HCPCS: 36415; 72125-TC; 84550; 85025; 99283-25

== ENCOUNTER 2018-10-25 12:34 | Emergency (ER) | payer OTHER, MEDICARE ==
--- NOTE | 2018-10-25 12:35 | PDOC ---
History of Present Illness - General Chief Complaint: Pain Stated Complaint: RECTAL SPASM/CONSTIPATION Time Seen by Provider: 10/25/18 12:35 History Source: Patient Exam Limitations: No Limitations - History of Present Illness Initial Comments: 82 year old male with PMH HTN, HLD, atrial fibrillation on Eliquis, prostate CA presented to ED for rectal pain since this morning. Pt reported he had a normal bowel movement last night, but noticed blood on the toilet paper. Pt reported this AM he attempted to have a bowel movement, but had too much pain, and only was able to pass small pieces of stool. Pt reported he noticed BRBPR. Pt reported he was unable to defecate all day, and his pain was increasing, prompting him to come to the Emergency Department. Pt denied abdominal pain, nausea, vomiting, diarrhea, fever. Past History - Past Medical History Allergies/Adverse Reactions: Allergies Allergy/AdvReac Type Severity Reaction Status Date / Time No Known Allergies Allergy Verified 10/25/18 12:35 Home Medications: Ambulatory Orders Amphet Asp/Amphet/D-Amphet [Adderall 30 mg Tablet] 30 mg PO DAILY 08/21/13 Desvenlafaxine Succinate [Pristiq] 100 mg PO DAILY 09/04/14 Lisinopril 50 mg PO DAILY 11/06/16 Apixaban [Eliquis -] 5 mg PO BID #60 tablet 11/08/16 Atorvastatin Ca [Lipitor] 40 mg PO HS #30 tablet 11/08/16 Cholecalciferol (Vitamin D3) [Vitamin D3] 1,000 unit PO DAILY 03/13/17 Clonazepam 1 mg PO HS 03/13/17 Gabapentin [Neurontin] 600 mg PO HS PRN 03/13/17 Metoprolol Tartrate [Lopressor -] 25 mg PO BID 03/13/17 Hydrochlorothiazide [Hctz -] 25 mg PO DAILY 10/25/18 Lidocaine 2% Uro-Jet [Xylocaine 2% Uro-Jet] 2 ml SD QID PRN #2 cartridge Multivitamin [One-Daily Multi-Vitamin] 1 each PO DAILY 10/25/18 Cancer: Yes (PROSTATE) Cardiac Disorders: Yes (A-FIB) CVA: Yes COPD: No HTN: Yes Psychiatric Problems: Yes (ADD, DEPRESSION) Other medical history: ACOUSTIC NEUROMA - Immunization History Td Vaccination: No - Suicide/Smoking/Psychosocial Hx Smoking History: Former smoker Have you smoked in the past 12 months: No Number of Cigarettes Smoked Daily: 0 If you are a former smoker, when did you quit?: YEARS AGO Hx Alcohol Use: No Drug/Substance Use Hx: No Substance Use Type: Alcohol Hx Substance Use Treatment: No Review of Systems - Review of Systems Able to Perform ROS?: Yes Comments:: General: denied fever, chills, generalized weakness. HEENT: denied sore throat, rhinorrhea, ear pain. Cardiovascular: denied chest pain, palpitations, syncope, diaphoresis. Respiratory: denied shortness of breath, cough, sputum production, hemoptysis. Gastrointestinal: admitted to rectal pain, rectal bleeding. denied abdominal pain, nausea, vomiting, diarrhea, constipation, blood in stool. Genitourinary: denied dysuria, increased urinary frequency, hematuria, urinary incontinence, flank pain. Back: denied back pain. Musculoskeletal: denied joint pain, muscle pain, joint swelling. Neurological: denied headache, dizziness, numbness, tingling, weakness. Integumentary: denied rash, laceration, abrasion. Hematologic/Lymphatic: denied bruising or bleeding. *Physical Exam - Physical Exam Comments: Constitutional: Well-nourished, Well-developed, appearing stated age. HEENT: head is normocephalic, atraumatic. EOMI. PERRLA. no posterior pharyngeal erythema.no tonsillar swelling or exudates bilaterally. uvula midline. no peritonsillar swelling, tenderness or abscess. no jaw tenderness or misalignment. Neck: supple. Full ROM. Cardiovascular: regular heart rhythm. no murmurs. no pericardial friction rub. Respiratory: clear to auscultation bilaterally. no crackles, rhonchi or wheezing. no stridor. Gastrointestinal: soft, nontender. normal bowel sounds. no rebound, guarding, masses. Extremities: peripheral pulses intact. no lower extremity edema. Neurological: CN 2-12 grossly intact. moves all four extremities. Psych: awake, alert, oriented x3. follows commands. answers questions appropriately. Rectal: no external hemorrhoids. dried blood to external skin. soft stool palpated. Medical Decision Making - Medical Decision Making 82 year old male with above PMH presented to ED for rectal spasming since this morning. Initial Vital Signs Temp Pulse Resp BP Pulse Ox 98.2 F 70 20 146/92 100 10/25/18 12:35 10/25/18 12:35 10/25/18 12:35 10/25/18 12:35 10/25/18 12:35 Afebrile. No tachycardia. No tachypnea. Mild hypertension. No hypoxia on room air. Labs ordered: none Imaging ordered: none Medications ordered: urojet lidocaine 10/25/18 13:20 Urojet Lidocaine applied to the external anal sphincter and into the anal canal. Will disimpact. 10/25/18 13:35 Two digital rectal exams were performed to disimpact patient. Pt reported improvement of rectal spasms. Hard stool palpated in the rectal vault. Medications ordered: Fleet enema 10/25/18 15:01 Pt reported two bowel movements and improvement of symptoms. Pt discharged. *DC/Admit/Observation/Transfer Diagnosis at time of Disposition: Rectal spasm - Discharge Dispostion Disposition: HOME Condition at time of disposition: Improved Decision to Admit order: No - Prescriptions Prescriptions: Lidocaine 2% Uro-Jet [Xylocaine 2% Uro-Jet] 2 ml SD QID PRN #2 cartridge PRN Reason: Pain - Referrals - Patient Instructions Printed Discharge Instructions: DI for Constipation Additional Instructions: Follow up with your primary care doctor within 3 days regarding your Emergency Room visit. Follow up with your theater technician within 3 days regarding your Emergency Room visit. Drink plenty of water throughout the day to stay hydrated. Eat foods high in fiber. Buy a fiber supplement over the counter. Take as advised on label. I have sent you a prescription for Lidocaine Jets, the same medication we applied in the Emergency Department. Use for pain as needed. Apply over top of the anus and inject a couple of mL into the base of the anal canal as needed. Follow instructions on label. Return to the Emergency Department for increasing pain, inability to empty bowels, increasing rectal bleeding, lightheadedness, chest pain, shortness of breath, vomiting, fever, or any other new, worsening or concerning symptoms. - Post Discharge Activity
[2018-10-25 12:49] VITALS: BP 146/92; PULSE 70; TEMP 98.2; BMI 25.2
[2018-10-25] MEDS ORDERED: LIDOCAINE HCL 2% JELLY 10 ML CARTRIDGE UR ONE (12:54)
[2018-10-25] MEDS ORDERED: SODIUM PHOSPHATE/NA BIPHOS 133 ML ENEMA PR ONE (13:39)
--- NOTE | 2018-10-25 14:11 | PDOC ---
Attending Attestation - Resident Resident Name: Noelle Abrams - ED Attending Attestation I have performed the following: I have examined & evaluated the patient, The case was reviewed & discussed with the resident, I agree w/resident's findings & plan - HPI HPI: 10/25/18 14:08 82-year-old male with history of prostate CA status post radiation therapy, history of hemorrhoids presents with rectal spasm since this morning. Patient had a normal bowel movement yesterday, slightly hard stool. While having a bowel movement this morning, developed sudden onset of pain with rectal bleeding and subsequent intermittent rectal spasm. No generalized abdominal pain , no fevers or chills, no history fissures or hemorrhoids complications or colorectal surgery. - Physicial Exam PE: 10/25/18 14:09 Vital signs stable Patient in moderate to severe distress intermittently with episodes of rectal pain Abdomen is soft/nontender/nondistended, no guarding or rebound. External rectal exam is normal, tender on rectal examination without palpable mass. Limited compliance, unable to visualize fissure. Perineal skin is intact without evidence of infection - Medical Decision Making 10/25/18 14:10 82-year-old male with rectal spasm, question anal fissure versus hemorrhoids, lower suspicion for colitis/diverticulitis despite history of radiation. Vital signs normal, low suspicion for infectious process. Topical lidocaine with moderate improvement in sxs trial of enema reassess 10/25/18 15:10 two large BMs after enema. Feels markedly improved, pain resolved. no further bleeding. agrees with d/c plan, has GI and colorectal f/u. understands return criteria.
== END 2018-10-25 15:17 | disposition home or self-care (01) ==
LOC: FER 12:34
DX: R25.2 Cramp and spasm (principal); Z87.891 Personal history of nicotine dependence; I10 Essential (primary) hypertension; F98.8 Other specified behavioral and emotional disorders with onset usually occurring in childhood and adolescence; I48.91 Unspecified atrial fibrillation; Z79.01 Long term (current) use of anticoagulants
CPT/HCPCS: 99282-25

== ENCOUNTER 2020-08-02 15:25 | Emergency (ER) | payer OTHER, MEDICARE ==
[2020-08-02 15:39] VITALS: BP 127/74; PULSE 67; TEMP 99; BMI 24.7
[2020-08-02] MEDS ORDERED: DIPHTH,PERTUSS(ACELL),TET 0.5 ML DISP.SYRIN IM ONE ×2 (16:01→17:12)
== END 2020-08-02 19:00 | disposition home or self-care (01) ==
LOC: FER 15:25
PROC: 3E0234Z Introduction of Serum, Toxoid and Vaccine into Muscle, Percutaneous Approach (ICD-10-PCS; principal; 2020-08-02)
DX: M54.5 Low back pain (principal)
CPT/HCPCS: 70450-TC; 72125-TC; 72128-TC; 72131-TC; 73030-TC-LT-FY; 73070-TC-LT-FY; 90471; 90715; 99285-25

== ENCOUNTER 2021-01-05 17:51 | Inpatient (IN) | payer OTHER, MEDICARE ==
[2021-01-05] MEDS ORDERED: SODIUM CHLORIDE 0.9% 500 ML INFUS.BAG IV ONE (20:03)
[2021-01-05] MEDS ORDERED: DEXTROSE 50%-WATER 25 GM/50 ML DISP.SYRIN ONE (20:38)
[2021-01-05] MEDS ORDERED: DEXTROSE 50%-WATER - 25 GM/50 ML VIAL IVPUSH ONE (20:39)
[2021-01-05 21:18] LABS: BASO % 0.8 % (0-2.0); HEMATOCRIT 40.4 % (35.4-49); LYMPH % 11.5 % (8-40); MCH 34.6 pg (25.7-33.7); MCHC 34.7 g/dl (32.0-35.9); MEAN CELL VOLUME 99.5 fl (80-96); MEAN PLT VOLUME 9.3 fl (7.5-11.1); NEUT % 82.7 % (42.8-82.8); PLATELET COUNT 165 10^3/uL (134-434); RBC 4.06 M/mm3 (4.00-5.60); RDW 13.6 % (11.9-15.9); WHITE BLOOD COUNT 6.5 K/mm3 (4.0-10.0)
[2021-01-05 21:34] LABS: CHLORIDE 104 mmol/L (98-107); SODIUM 140 mmol/L (136-145)
[2021-01-05 21:36] LABS: CALCIUM 9.4 mg/dL (8.5-10.1)
[2021-01-05 21:37] LABS: ALBUMIN 3.8 g/dl (3.4-5.0); ANION GAP 17 MMOL/L (8-16); BLOOD UREA NITROGEN 57.5 mg/dL (7-18); CO2 19 mmol/L (21-32)
[2021-01-05 21:40] LABS: CREATININE 1.9 mg/dL (0.55-1.3); PHOSPHOROUS 4.2 mg/dL (2.5-4.9); SGOT/AST 94 U/L (15-37); SGPT/ALT 84 U/L (13-61)
[2021-01-05 21:41] LABS: BILIRUBIN,TOTAL 0.4 mg/dL (0.2-1)
[2021-01-05 21:42] LABS: TOT PROT 6.8 g/dl (6.4-8.2)
[2021-01-05 21:43] LABS: ALK PHOS 86 U/L (45-117)
[2021-01-05 21:45] LABS: MAGNESIUM 2.4 mg/dL (1.8-2.4)
[2021-01-05 22:08] LABS: GLUCOSE,RANDOM 47 mg/dL (74-106)
[2021-01-05] MEDS ORDERED: FOLIC ACID IVPB ONE (22:15)
[2021-01-05] MEDS ORDERED: SODIUM CHLORIDE IVPB ONE (22:15)
[2021-01-05] MEDS ORDERED: THIAMINE HCL IVPB ONE (22:15)
[2021-01-05 22:31] LABS: ARTERIAL BLD GAS O2 SATURATION 96.3 % (95-98); ARTERIAL BLOOD GAS BASE EXCESS -5.7 mmol/L (-2-2); ARTERIAL BLOOD GAS pH 7.349 (7.350-7.450)
[2021-01-05] MEDS ORDERED: MULTIVITAMINS (DAILY MVI) TABLET (FP) ONE (22:54)
[2021-01-05] MEDS ORDERED: APIXABAN 2.5 MG TABLET ONE (22:54)
[2021-01-05 22:56] LABS: PH,URINE 5.5 (5.0-8.0); URINE APPEARANCE CLEAR; URINE BILIRUBIN NEGATIVE (NEGATIVE); URINE COLOR DK YELLOW; URINE GLUCOSE (UA) NEGATIVE (NEGATIVE); URINE KETONE TRACE (NEGATIVE); URINE LEUK ESTERASE NEGATIVE (NEGATIVE); URINE NITRITE NEGATIVE (NEGATIVE); URINE PROTEIN TRACE (NEGATIVE)
[2021-01-05 23:05] LABS: COCAINE, UR NEGATIVE (NEGATIVE); URINE BENZODIAZEPINES NEGATIVE (NEGATIVE)
[2021-01-05 23:06] LABS: METHADONE, UR NEGATIVE (NEGATIVE); PHENCYCLIDINE,URINE NEGATIVE (NEGATIVE)
[2021-01-05] MEDS: APIXABAN 2.5 MG TABLET PO SCH (23:12)
[2021-01-05] MEDS: MULTIVITAMINS (DAILY MVI) TABLET (FP) PO SCH (23:12)
[2021-01-05 23:18] LABS: OPIATES, URI NEGATIVE (NEGATIVE); URINE AMPHETAMINES POSITIVE (NEGATIVE); URINE BARBITURATES NEGATIVE (NEGATIVE)
[2021-01-06] MEDS ORDERED: LORazepam 2 MG/ML SDV VIAL IVPUSH PRN (00:52)
[2021-01-06] MEDS ORDERED: DEXTROSE 5%-NORMAL SALINE 1,000 ML IV SCH (01:00)
[2021-01-06 01:02] LABS: CALCIUM 8.5 mg/dL (8.5-10.1)
[2021-01-06 01:03] LABS: BLOOD UREA NITROGEN 58.3 mg/dL (7-18)
[2021-01-06 01:07] LABS: CREATININE 1.8 mg/dL (0.55-1.3)
[2021-01-06] MEDS ORDERED: HEPARIN NA (PORCINE) 5,000 UNITS/ML 1ML VIAL SQ SCH (02:00)
[2021-01-06] MEDS ORDERED: LORazepam 2 MG/ML SDV VIAL ONE ×2 (03:22→06:22)
[2021-01-06] MEDS ORDERED: LORazepam 2 MG/ML SDV VIAL IVPUSH ONE (06:00)
[2021-01-06 06:57] LABS: HEMATOCRIT 36.5 % (35.4-49); HEMOGLOBIN 12.6 GM/dL (11.7-16.9); MCH 34.2 pg (25.7-33.7); MCHC 34.5 g/dl (32.0-35.9); MEAN PLT VOLUME 9.1 fl (7.5-11.1); PLATELET COUNT 157 10^3/uL (134-434); RBC 3.69 M/mm3 (4.00-5.60); RDW 13.8 % (11.9-15.9); WHITE BLOOD COUNT 5.9 K/mm3 (4.0-10.0)
[2021-01-06 07:03] LABS: INR 1.08 (0.83-1.09); PROTHROMBIN TIME (PATIENT) 12.7 SEC (9.7-13.0)
[2021-01-06 07:05] LABS: ACTIVATED PTT 26.1 SECONDS (25.2-36.5)
[2021-01-06 07:18] LABS: BLOOD UREA NITROGEN 55.5 mg/dL (7-18)
[2021-01-06 07:19] LABS: CALCIUM 8.5 mg/dL (8.5-10.1); MAGNESIUM 2.3 mg/dL (1.8-2.4)
[2021-01-06 07:20] LABS: ALBUMIN 3.1 g/dl (3.4-5.0)
[2021-01-06 07:22] LABS: CREATININE 1.7 mg/dL (0.55-1.3)
[2021-01-06 07:23] LABS: PHOSPHOROUS 3.9 mg/dL (2.5-4.9)
[2021-01-06 07:24] LABS: BILIRUBIN,TOTAL 0.6 mg/dL (0.2-1); TOT PROT 5.7 g/dl (6.4-8.2)
[2021-01-06] MEDS ORDERED: MULTIVITAMINS (DAILY MVI) TABLET (FP) ONE (10:52)
[2021-01-06] MEDS ORDERED: APIXABAN 2.5 MG TABLET ONE (10:52)
[2021-01-06] MEDS ORDERED: TAMSULOSIN HCL 0.4 MG CAP ONE (10:53)
[2021-01-06] MEDS ORDERED: metoPROLOL SUCCINATE 25 MG TAB.SR.24H (FP) ONE (10:53)
[2021-01-06] MEDS: APIXABAN 2.5 MG TABLET PO SCH ×2 (11:00→21:19)
[2021-01-06] MEDS: MULTIVITAMINS (DAILY MVI) TABLET (FP) PO SCH (11:00)
[2021-01-06] MEDS: TAMSULOSIN HCL 0.4 MG CAP PO SCH (11:00)
[2021-01-06] MEDS: LISINOPRIL 10 MG TABLET PO SCH (11:00)
[2021-01-06] MEDS: SODIUM CHLORIDE 1,000 ML IV SCH (11:00)
[2021-01-06] MEDS: metoPROLOL SUCCINATE 25 MG TAB.SR.24H (FP) PO SCH (11:18)
[2021-01-06] MEDS ORDERED: [UNRECOGNIZED DRUG - OTHER] PO SCH (18:00)
[2021-01-06] MEDS ORDERED: GABAPENTIN 300 MG CAPSULE PO SCH (18:00)
[2021-01-06] MEDS ORDERED: AMPHET PO SCH (18:00)
[2021-01-06] MEDS ORDERED: D AMPHET PO SCH (18:00)
[2021-01-06] MEDS ORDERED: DESVENLAFAXINE SUCCINATE 100 MG PO SCH (18:00)
[2021-01-06] MEDS ORDERED: AMPHET ASP PO SCH (18:00)
[2021-01-06] MEDS: traZODone HCL 50 MG TABLET (FP) PO SCH (21:19)
[2021-01-06] MEDS: LORazepam 0.5 MG TABLET PO SCH (21:19)
[2021-01-06] MEDS: ATORVASTATIN CA 40 MG TABLET (FP) PO SCH (21:20)
[2021-01-07] MEDS: LISINOPRIL 10 MG TABLET PO SCH (06:10)
[2021-01-07 08:36] LABS: BASO % 0.4 % (0-2.0); EOS % 0.1 % (0-4.5); HEMATOCRIT 37.9 % (35.4-49); HEMOGLOBIN 12.9 GM/dL (11.7-16.9); LYMPH % 9.9 % (8-40); MCH 34.1 pg (25.7-33.7); MCHC 34.1 g/dl (32.0-35.9); MEAN CELL VOLUME 99.9 fl (80-96); MONO % 8.8 % (3.8-10.2); NEUT % 80.8 % (42.8-82.8); PLATELET COUNT 147 10^3/uL (134-434); RBC 3.79 M/mm3 (4.00-5.60); RDW 13.6 % (11.9-15.9); WHITE BLOOD COUNT 7.2 K/mm3 (4.0-10.0)
[2021-01-07 09:06] LABS: BLOOD UREA NITROGEN 35.7 mg/dL (7-18); CALCIUM 8.5 mg/dL (8.5-10.1)
[2021-01-07 09:07] LABS: MAGNESIUM 2.2 mg/dL (1.8-2.4)
[2021-01-07 09:10] LABS: CREATININE 1.3 mg/dL (0.55-1.3); PHOSPHOROUS 2.1 mg/dL (2.5-4.9)
[2021-01-07 09:11] LABS: BILIRUBIN,TOTAL 0.9 mg/dL (0.2-1); TOT PROT 5.6 g/dl (6.4-8.2)
[2021-01-07] MEDS: MULTIVITAMINS (DAILY MVI) TABLET (FP) PO SCH (09:42)
[2021-01-07] MEDS: LORazepam 0.5 MG TABLET PO SCH (09:42)
[2021-01-07] MEDS: metoPROLOL SUCCINATE 25 MG TAB.SR.24H (FP) PO SCH (09:42)
[2021-01-07] MEDS: GABAPENTIN 300 MG CAPSULE PO SCH (09:43)
[2021-01-07] MEDS: TAMSULOSIN HCL 0.4 MG CAP PO SCH (09:43)
[2021-01-07] MEDS: APIXABAN 2.5 MG TABLET PO SCH ×2 (09:43→21:49)
[2021-01-07] MEDS ORDERED: LORazepam 2 MG TABLET PO SCH (11:00)
[2021-01-07] MEDS ORDERED: POTASSIUM PHOSPHATE 15 MM in SODIUM CHLORIDE 250 ML IVPB ONE (12:00)
[2021-01-07] MEDS ORDERED: LORazepam 1 MG TABLET PO PRN ×2 (12:11→17:31)
[2021-01-07] MEDS: SODIUM CHLORIDE 1,000 ML IV SCH (12:49)
[2021-01-07] MEDS ORDERED: LORazepam 1 MG TABLET PO SCH (13:49)
[2021-01-07] MEDS ORDERED: LORazepam 0.5 MG TABLET PO SCH (17:31)
[2021-01-07] MEDS: traZODone HCL 50 MG TABLET (FP) PO SCH (21:48)
[2021-01-07] MEDS: ATORVASTATIN CA 40 MG TABLET (FP) PO SCH (21:49)
[2021-01-07] MEDS: LORazepam 1 MG TABLET PO SCH (23:30)
[2021-01-08] MEDS: LORazepam 1 MG TABLET PO SCH ×4 (05:22→22:43)
[2021-01-08 08:59] LABS: BASO % 0.4 % (0-2.0); EOS % 0.6 % (0-4.5); HEMATOCRIT 36.4 % (35.4-49); HEMOGLOBIN 12.4 GM/dL (11.7-16.9); LYMPH % 8.5 % (8-40); MCH 33.9 pg (25.7-33.7); MEAN CELL VOLUME 99.8 fl (80-96); MEAN PLT VOLUME 8.6 fl (7.5-11.1); MONO % 9.4 % (3.8-10.2); NEUT % 81.1 % (42.8-82.8); PLATELET COUNT 128 10^3/uL (134-434); RBC 3.65 M/mm3 (4.00-5.60); RDW 13.7 % (11.9-15.9); WHITE BLOOD COUNT 6.2 K/mm3 (4.0-10.0)
[2021-01-08 09:32] LABS: CALCIUM 8.5 mg/dL (8.5-10.1)
[2021-01-08 09:33] LABS: ALBUMIN 2.7 g/dl (3.4-5.0); MAGNESIUM 2.1 mg/dL (1.8-2.4)
[2021-01-08 09:36] LABS: CREATININE 1.2 mg/dL (0.55-1.3); PHOSPHOROUS 2.3 mg/dL (2.5-4.9)
[2021-01-08 09:38] LABS: BILIRUBIN,TOTAL 0.7 mg/dL (0.2-1); TOT PROT 5.1 g/dl (6.4-8.2)
[2021-01-08] MEDS: GABAPENTIN 300 MG CAPSULE PO SCH (09:43)
[2021-01-08] MEDS: metoPROLOL SUCCINATE 25 MG TAB.SR.24H (FP) PO SCH (09:44)
[2021-01-08] MEDS: TAMSULOSIN HCL 0.4 MG CAP PO SCH (09:44)
[2021-01-08] MEDS: APIXABAN 2.5 MG TABLET PO SCH ×2 (09:44→21:32)
[2021-01-08] MEDS: MULTIVITAMINS (DAILY MVI) TABLET (FP) PO SCH (09:44)
[2021-01-08] MEDS: SODIUM CHLORIDE 1,000 ML IV SCH ×2 (10:20→20:29)
[2021-01-08] MEDS: traZODone HCL 50 MG TABLET (FP) PO SCH (21:32)
[2021-01-08] MEDS: ATORVASTATIN CA 40 MG TABLET (FP) PO SCH (21:32)
[2021-01-09] MEDS ORDERED: LORazepam 1 MG TABLET PO SCH (05:00)
[2021-01-09] MEDS: LORazepam 1 MG TABLET PO SCH ×4 (05:07→23:25)
[2021-01-09 09:45] LABS: BASO % 0.3 % (0-2.0); EOS % 0.5 % (0-4.5); HEMATOCRIT 39.3 % (35.4-49); HEMOGLOBIN 13.2 GM/dL (11.7-16.9); LYMPH % 9.2 % (8-40); MCH 33.7 pg (25.7-33.7); MCHC 33.6 g/dl (32.0-35.9); MEAN CELL VOLUME 100.6 fl (80-96); MEAN PLT VOLUME 9.4 fl (7.5-11.1); MONO % 10.9 % (3.8-10.2); NEUT % 79.1 % (42.8-82.8); PLATELET COUNT 140 10^3/uL (134-434); RBC 3.91 M/mm3 (4.00-5.60); RDW 13.6 % (11.9-15.9); WHITE BLOOD COUNT 7.1 K/mm3 (4.0-10.0)
[2021-01-09 10:06] LABS: ALBUMIN 2.9 g/dl (3.4-5.0); BLOOD UREA NITROGEN 21.1 mg/dL (7-18); CALCIUM 8.2 mg/dL (8.5-10.1); MAGNESIUM 1.9 mg/dL (1.8-2.4)
[2021-01-09 10:09] LABS: CREATININE 1.2 mg/dL (0.55-1.3)
[2021-01-09 10:10] LABS: PHOSPHOROUS 2.2 mg/dL (2.5-4.9)
[2021-01-09 10:12] LABS: TOT PROT 5.5 g/dl (6.4-8.2)
[2021-01-09] MEDS: GABAPENTIN 300 MG CAPSULE PO SCH (10:25)
[2021-01-09] MEDS: TAMSULOSIN HCL 0.4 MG CAP PO SCH (10:25)
[2021-01-09] MEDS: APIXABAN 2.5 MG TABLET PO SCH ×2 (10:25→21:41)
[2021-01-09] MEDS: MULTIVITAMINS (DAILY MVI) TABLET (FP) PO SCH (10:25)
[2021-01-09] MEDS: metoPROLOL SUCCINATE 25 MG TAB.SR.24H (FP) PO SCH (10:25)
[2021-01-09] MEDS: SODIUM CHLORIDE 1,000 ML IV SCH (10:25)
[2021-01-09] MEDS: FLUoxetine HCL 20 MG CAPSULE PO SCH (16:30)
[2021-01-09] MEDS: ATORVASTATIN CA 40 MG TABLET (FP) PO SCH (21:41)
[2021-01-09] MEDS: traZODone HCL 50 MG TABLET (FP) PO SCH (21:41)
[2021-01-10] MEDS ORDERED: LORazepam 0.5 MG TABLET PO PRN ×2
[2021-01-10] MEDS ORDERED: LORazepam 0.5 MG TABLET PO SCH (05:00)
[2021-01-10] MEDS: LORazepam 0.5 MG TABLET PO SCH ×4 (06:05→23:40)
[2021-01-10] MEDS: TAMSULOSIN HCL 0.4 MG CAP PO SCH (09:06)
[2021-01-10] MEDS: SODIUM CHLORIDE 1,000 ML IV SCH (10:06)
[2021-01-10] MEDS: GABAPENTIN 300 MG CAPSULE PO SCH (10:06)
[2021-01-10] MEDS: APIXABAN 2.5 MG TABLET PO SCH ×2 (10:06→21:31)
[2021-01-10] MEDS: MULTIVITAMINS (DAILY MVI) TABLET (FP) PO SCH (10:07)
[2021-01-10] MEDS: metoPROLOL SUCCINATE 25 MG TAB.SR.24H (FP) PO SCH (10:07)
[2021-01-10] MEDS: FLUoxetine HCL 20 MG CAPSULE PO SCH (10:07)
[2021-01-10] MEDS ORDERED: SODIUM PHOSPHATE - 15 MM in SODIUM CHLORIDE 250 ML IVPB ONE (13:15)
[2021-01-10] MEDS: ATORVASTATIN CA 40 MG TABLET (FP) PO SCH (21:32)
[2021-01-10] MEDS: traZODone HCL 50 MG TABLET (FP) PO SCH (21:32)
[2021-01-11] MEDS: SODIUM CHLORIDE 1,000 ML IV SCH ×2 (04:18→18:05)
[2021-01-11] MEDS ORDERED: LORazepam 0.5 MG TABLET PO ONE (05:00)
[2021-01-11 08:55] LABS: BASO % 0.5 % (0-2.0); EOS % 1.1 % (0-4.5); HEMATOCRIT 34.9 % (35.4-49); HEMOGLOBIN 11.9 GM/dL (11.7-16.9); LYMPH % 10.2 % (8-40); MCHC 34.1 g/dl (32.0-35.9); MEAN CELL VOLUME 99.6 fl (80-96); MEAN PLT VOLUME 9.4 fl (7.5-11.1); MONO % 11.9 % (3.8-10.2); NEUT % 76.3 % (42.8-82.8); PLATELET COUNT 136 10^3/uL (134-434); RDW 13.4 % (11.9-15.9); WHITE BLOOD COUNT 6.2 K/mm3 (4.0-10.0)
[2021-01-11 09:14] LABS: CALCIUM 8.1 mg/dL (8.5-10.1)
[2021-01-11 09:15] LABS: BLOOD UREA NITROGEN 21.6 mg/dL (7-18); MAGNESIUM 2.1 mg/dL (1.8-2.4)
[2021-01-11 09:17] LABS: BILIRUBIN,TOTAL 0.6 mg/dL (0.2-1); TOT PROT 4.8 g/dl (6.4-8.2)
[2021-01-11 09:18] LABS: ALBUMIN 2.2 g/dl (3.4-5.0); PHOSPHOROUS 3.2 mg/dL (2.5-4.9)
[2021-01-11] MEDS: FLUoxetine HCL 20 MG CAPSULE PO SCH (09:40)
[2021-01-11] MEDS: MULTIVITAMINS (DAILY MVI) TABLET (FP) PO SCH (09:40)
[2021-01-11] MEDS: metoPROLOL SUCCINATE 25 MG TAB.SR.24H (FP) PO SCH (09:40)
[2021-01-11] MEDS: APIXABAN 2.5 MG TABLET PO SCH ×2 (09:40→21:16)
[2021-01-11] MEDS: TAMSULOSIN HCL 0.4 MG CAP PO SCH (09:40)
[2021-01-11] MEDS: GABAPENTIN 300 MG CAPSULE PO SCH (09:40)
[2021-01-11] MEDS ORDERED: PT OWN MED DRAWER 7, Y5N ONE (14:34)
[2021-01-11] MEDS: ATORVASTATIN CA 40 MG TABLET (FP) PO SCH (21:15)
[2021-01-11] MEDS: traZODone HCL 50 MG TABLET (FP) PO SCH (21:16)
[2021-01-12] MEDS: SODIUM CHLORIDE 1,000 ML IV SCH (05:08)
[2021-01-12 08:10] LABS: BASO % 0.6 % (0-2.0); EOS % 3.3 % (0-4.5); HEMATOCRIT 37.1 % (35.4-49); HEMOGLOBIN 12.4 GM/dL (11.7-16.9); LYMPH % 14.3 % (8-40); MCH 33.7 pg (25.7-33.7); MCHC 33.5 g/dl (32.0-35.9); MEAN CELL VOLUME 100.6 fl (80-96); MEAN PLT VOLUME 9.5 fl (7.5-11.1); MONO % 11.9 % (3.8-10.2); NEUT % 69.9 % (42.8-82.8); PLATELET COUNT 154 10^3/uL (134-434); RBC 3.69 M/mm3 (4.00-5.60); RDW 13.4 % (11.9-15.9); WHITE BLOOD COUNT 5.7 K/mm3 (4.0-10.0)
[2021-01-12 08:32] LABS: BLOOD UREA NITROGEN 22.6 mg/dL (7-18); CALCIUM 7.8 mg/dL (8.5-10.1)
[2021-01-12 08:35] LABS: CREATININE 1.1 mg/dL (0.55-1.3)
[2021-01-12 08:36] LABS: PHOSPHOROUS 2.6 mg/dL (2.5-4.9)
[2021-01-12 08:37] LABS: BILIRUBIN,TOTAL 0.6 mg/dL (0.2-1); TOT PROT 4.9 g/dl (6.4-8.2)
[2021-01-12] MEDS ORDERED: PT OWN MED DRAWER 7, Y5N ONE (09:00)
[2021-01-12] MEDS: GABAPENTIN 300 MG CAPSULE PO SCH (09:02)
[2021-01-12] MEDS: DESVENLAFAXINE 100 MG PO SCH (09:02)
[2021-01-12] MEDS: APIXABAN 2.5 MG TABLET PO SCH ×2 (09:02→21:27)
[2021-01-12] MEDS: LISINOPRIL 10 MG TABLET PO SCH (09:02)
[2021-01-12] MEDS: TAMSULOSIN HCL 0.4 MG CAP PO SCH (09:02)
[2021-01-12] MEDS: metoPROLOL SUCCINATE 25 MG TAB.SR.24H (FP) PO SCH (09:03)
[2021-01-12] MEDS: MULTIVITAMINS (DAILY MVI) TABLET (FP) PO SCH (09:03)
[2021-01-12 15:13] VITALS: BMI 25.1
[2021-01-12] MEDS ORDERED: THIAMINE HCL 100 MG TABLET (FP) PO SCH (17:00)
[2021-01-12] MEDS: traZODone HCL 50 MG TABLET (FP) PO SCH (21:26)
[2021-01-12] MEDS: ATORVASTATIN CA 40 MG TABLET (FP) PO SCH (21:27)
[2021-01-13] MEDS: SODIUM CHLORIDE 1,000 ML IV SCH (06:29)
[2021-01-13] MEDS: APIXABAN 2.5 MG TABLET PO SCH ×2 (09:28→21:09)
[2021-01-13] MEDS: MULTIVITAMINS (DAILY MVI) TABLET (FP) PO SCH (09:29)
[2021-01-13] MEDS: metoPROLOL SUCCINATE 25 MG TAB.SR.24H (FP) PO SCH (09:29)
[2021-01-13] MEDS: LISINOPRIL 10 MG TABLET PO SCH (09:29)
[2021-01-13] MEDS: FOLIC ACID 1 MG TABLET (FP) PO SCH (09:29)
[2021-01-13] MEDS: GABAPENTIN 300 MG CAPSULE PO SCH (09:29)
[2021-01-13] MEDS: TAMSULOSIN HCL 0.4 MG CAP PO SCH (09:29)
[2021-01-13] MEDS ORDERED: PT OWN MED DRAWER 7, Y5N ONE (09:31)
[2021-01-13] MEDS: DESVENLAFAXINE 100 MG PO SCH (09:34)
[2021-01-13 10:00] LABS: BASO % 0.4 % (0-2.0); EOS % 1.1 % (0-4.5); HEMOGLOBIN 11.7 GM/dL (11.7-16.9); LYMPH % 11.3 % (8-40); MCH 34.2 pg (25.7-33.7); MCHC 34.3 g/dl (32.0-35.9); MEAN CELL VOLUME 99.8 fl (80-96); MEAN PLT VOLUME 8.9 fl (7.5-11.1); MONO % 10.4 % (3.8-10.2); NEUT % 76.8 % (42.8-82.8); PLATELET COUNT 182 10^3/uL (134-434); RBC 3.41 M/mm3 (4.00-5.60); RDW 13.4 % (11.9-15.9); WHITE BLOOD COUNT 4.9 K/mm3 (4.0-10.0)
[2021-01-13 10:26] LABS: CALCIUM 7.8 mg/dL (8.5-10.1)
[2021-01-13 10:30] LABS: CREATININE 1.2 mg/dL (0.55-1.3); PHOSPHOROUS 2.4 mg/dL (2.5-4.9)
[2021-01-13 10:31] LABS: BILIRUBIN,TOTAL 0.4 mg/dL (0.2-1); TOT PROT 4.6 g/dl (6.4-8.2)
[2021-01-13] MEDS: traZODone HCL 50 MG TABLET (FP) PO SCH (21:09)
[2021-01-13] MEDS: ATORVASTATIN CA 40 MG TABLET (FP) PO SCH (21:09)
[2021-01-14] MEDS: LISINOPRIL 10 MG TABLET PO SCH (10:02)
[2021-01-14] MEDS: metoPROLOL SUCCINATE 25 MG TAB.SR.24H (FP) PO SCH (10:02)
[2021-01-14] MEDS: GABAPENTIN 300 MG CAPSULE PO SCH (10:03)
[2021-01-14] MEDS: FOLIC ACID 1 MG TABLET (FP) PO SCH (10:03)
[2021-01-14] MEDS: MULTIVITAMINS (DAILY MVI) TABLET (FP) PO SCH (10:03)
[2021-01-14] MEDS: APIXABAN 2.5 MG TABLET PO SCH (10:03)
[2021-01-14] MEDS: TAMSULOSIN HCL 0.4 MG CAP PO SCH (10:03)
[2021-01-14] MEDS ORDERED: PT OWN MED DRAWER 7, Y5N ONE ×2 (10:04→20:01)
[2021-01-14] MEDS: DESVENLAFAXINE 100 MG PO SCH (10:04)
[2021-01-14] MEDS ORDERED: THIAMINE HCL 100 MG TABLET (FP) PO SCH (11:00)
[2021-01-14 14:29] VITALS: BP 121/66; PULSE 81; TEMP 97.8
== END 2021-01-14 20:50 | DRG 896 ==
LOC: JER 17:51 → JERBED 22:27 → INTOOBSV 22:27 → J6S 01-06 18:46 → OBSVTOIN 01-07 11:53 → J6S 01-13 21:13
PROVIDERS: ADMIT Internal Medicine; ATTEND Internal Medicine
PROC: HZ2ZZZZ Detoxification Services for Substance Abuse Treatment (ICD-10-PCS; principal; 2021-01-05)
DX: F10.239 Alcohol dependence with withdrawal, unspecified (principal); G92.9 Unspecified toxic encephalopathy; N17.9 Acute kidney failure, unspecified; F10.251 Alcohol dependence with alcohol-induced psychotic disorder with hallucinations; I48.91 Unspecified atrial fibrillation; I10 Essential (primary) hypertension; F12.90 Cannabis use, unspecified, uncomplicated; F32.9 Major depressive disorder, single episode, unspecified; E86.0 Dehydration; E86.1 Hypovolemia; F98.8 Other specified behavioral and emotional disorders with onset usually occurring in childhood and adolescence; R13.10 Dysphagia, unspecified; I95.9 Hypotension, unspecified; R94.5 Abnormal results of liver function studies; R73.03 Prediabetes; F90.9 Attention-deficit hyperactivity disorder, unspecified type; N28.1 Cyst of kidney, acquired; Z85.46 Personal history of malignant neoplasm of prostate
CPT/HCPCS: 36415; 36600; 70450-TC; 70551-TC; 71045-TC-FY; 72125-TC; 76775-TC; 80048; 80053; 80307; 81003; 82140; 82375; 82550; 82553; 82607; 82747; 82803; 82962; 83036; 83605; 83735; 84100; 84439; 84443; 84481; 84484; 85014; 85025; 85027; 85610; 85730; 87086; 93005; 93010; 93880-TC; 93971-TC; 97116-GP; 97162-GP; 99285-25; C9803; G0378; U0003; U0005

== ENCOUNTER 2021-03-07 14:20 | Observation (INO) | payer OTHER, MEDICARE ==
[2021-03-07 15:53] LABS: ALBUMIN 3.4 g/dl (3.4-5.0); BILIRUBIN,TOTAL 0.3 mg/dl (0.2-1); CALCIUM 8.8 mg/dl (8.5-10); CREATININE 1.3 mg/dl (0.55-1.3); TOT PROT 5.5 g/dl (6.4-8.2)
[2021-03-07 18:28] LABS: BASO % 0.6 % (0-2.0); EOS % 0.7 % (0-4.5); HEMATOCRIT 37.5 % (35.4-49); HEMOGLOBIN 12.6 GM/dL (11.7-16.9); LYMPH % 18.8 % (8-40); MCH 33.3 pg (25.7-33.7); MCHC 33.7 g/dl (32.0-35.9); MEAN CELL VOLUME 98.9 fl (80-96); MEAN PLT VOLUME 9.3 fl (7.5-11.1); MONO % 7.7 % (3.8-10.2); NEUT % 72.2 % (42.8-82.8); PLATELET COUNT 162 10^3/uL (134-434); RBC 3.79 M/mm3 (4.00-5.60); RDW 14.7 % (11.9-15.9); WHITE BLOOD COUNT 5.3 K/mm3 (4.0-10.0)
[2021-03-07] MEDS ORDERED: LORazepam 2 MG TABLET PO ONE (18:41)
[2021-03-07] MEDS ORDERED: LORazepam 0.5 MG TABLET ONE (18:49)
[2021-03-07] MEDS ORDERED: ACETAMINOPHEN 325 MG TABLET (FP) PO PRN (19:47)
[2021-03-07] MEDS ORDERED: POLYETHYLENE GLYCOL (HEALTHYLAX) 3350 17 GM PACKET PO PRN (19:47)
[2021-03-07] MEDS ORDERED: SODIUM CHLORIDE 500 ML IV STA ×2 (19:54→19:58)
[2021-03-07 22:57] VITALS: BMI 23.2
[2021-03-08] MEDS: LORazepam 0.5 MG TABLET PO PRN ×3 (00:23→15:17)
[2021-03-08] MEDS: TAMSULOSIN HCL 0.4 MG CAP PO SCH (07:57)
[2021-03-08 09:53] LABS: CALCIUM 8.5 mg/dl (8.5-10); CREATININE 1.1 mg/dl (0.55-1.3)
[2021-03-08] MEDS ORDERED: AMPHET PO SCH (10:00)
[2021-03-08] MEDS ORDERED: D AMPHET PO SCH (10:00)
[2021-03-08] MEDS ORDERED: AMPHET ASP PO SCH (10:00)
[2021-03-08] MEDS ORDERED: [UNRECOGNIZED DRUG - OTHER] PO SCH (10:00)
[2021-03-08 10:31] LABS: BASO % 0.6 % (0-2.0); EOS % 0.3 % (0-4.5); HEMATOCRIT 37.8 % (35.4-49); HEMOGLOBIN 12.4 GM/dL (11.7-16.9); MCH 32.3 pg (25.7-33.7); MCHC 32.8 g/dl (32.0-35.9); MEAN CELL VOLUME 98.4 fl (80-96); MEAN PLT VOLUME 9.6 fl (7.5-11.1); MONO % 6.8 % (3.8-10.2); NEUT % 75.3 % (42.8-82.8); PLATELET COUNT 170 10^3/uL (134-434); RBC 3.84 M/mm3 (4.00-5.60); RDW 14.3 % (11.9-15.9); WHITE BLOOD COUNT 4.9 K/mm3 (4.0-10.0)
[2021-03-08] MEDS: FOLIC ACID 1 MG TABLET (FP) PO SCH (10:50)
[2021-03-08] MEDS: LISINOPRIL 10 MG TABLET PO SCH (10:50)
[2021-03-08] MEDS: APIXABAN 2.5 MG TABLET PO SCH ×3 (10:50→21:35)
[2021-03-08] MEDS: metoPROLOL SUCCINATE 25 MG TAB.SR.24H (FP) PO SCH (10:50)
[2021-03-08] MEDS: THIAMINE HCL 100 MG TABLET (FP) PO SCH ×2 (10:50→21:35)
[2021-03-08] MEDS: traZODone HCL 50 MG TABLET (FP) PO SCH (21:35)
[2021-03-08] MEDS: ATORVASTATIN CA 40 MG TABLET (FP) PO SCH (21:36)
[2021-03-08] MEDS ORDERED: LORazepam 2 MG/ML SDV VIAL IVPUSH ONE (23:07)
[2021-03-09] MEDS: FOLIC ACID 1 MG TABLET (FP) PO SCH (10:17)
[2021-03-09] MEDS: LISINOPRIL 10 MG TABLET PO SCH (10:17)
[2021-03-09] MEDS: APIXABAN 2.5 MG TABLET PO SCH ×2 (10:17→21:36)
[2021-03-09] MEDS: VENLAFAXINE HCL 75 MG E.R. CAPSULES PO SCH (10:18)
[2021-03-09] MEDS: THIAMINE HCL 100 MG TABLET (FP) PO SCH ×2 (10:18→21:36)
[2021-03-09] MEDS: metoPROLOL SUCCINATE 25 MG TAB.SR.24H (FP) PO SCH (10:18)
[2021-03-09] MEDS: TAMSULOSIN HCL 0.4 MG CAP PO SCH (10:20)
[2021-03-09] MEDS: traZODone HCL 50 MG TABLET (FP) PO SCH (21:35)
[2021-03-09] MEDS: ATORVASTATIN CA 40 MG TABLET (FP) PO SCH (21:36)
[2021-03-10] MEDS: LISINOPRIL 10 MG TABLET PO SCH (09:06)
[2021-03-10] MEDS: FOLIC ACID 1 MG TABLET (FP) PO SCH (09:06)
[2021-03-10] MEDS: THIAMINE HCL 100 MG TABLET (FP) PO SCH (09:06)
[2021-03-10] MEDS: TAMSULOSIN HCL 0.4 MG CAP PO SCH (09:06)
[2021-03-10] MEDS: VENLAFAXINE HCL 75 MG E.R. CAPSULES PO SCH (09:06)
[2021-03-10] MEDS: metoPROLOL SUCCINATE 25 MG TAB.SR.24H (FP) PO SCH (09:06)
[2021-03-10] MEDS: APIXABAN 2.5 MG TABLET PO SCH (09:06)
[2021-03-10 09:22] LABS: ALBUMIN 3.8 g/dl (3.4-5.0); BILIRUBIN,TOTAL 0.7 mg/dl (0.2-1); CALCIUM 9.4 mg/dl (8.5-10); CREATININE 1.1 mg/dl (0.55-1.3); TOT PROT 6.1 g/dl (6.4-8.2)
[2021-03-10 10:21] LABS: BASO % 0.5 % (0-2.0); HEMATOCRIT 37.7 % (35.4-49); HEMOGLOBIN 12.8 GM/dL (11.7-16.9); LYMPH % 13.2 % (8-40); MCH 33.5 pg (25.7-33.7); MEAN CELL VOLUME 98.5 fl (80-96); MEAN PLT VOLUME 9.2 fl (7.5-11.1); MONO % 6.8 % (3.8-10.2); NEUT % 79.5 % (42.8-82.8); PLATELET COUNT 165 10^3/uL (134-434); RBC 3.83 M/mm3 (4.00-5.60); RDW 14.7 % (11.9-15.9); WHITE BLOOD COUNT 4.7 K/mm3 (4.0-10.0)
[2021-03-10] MEDS ORDERED: REGADENOSON 0.4 MG/5 ML PRE-FILLED SYRINGE IVPUSH ONE ×2 (10:32→12:45)
[2021-03-10] MEDS ORDERED: ASPIRIN COATED 81 MG TABLET.EC PO SCH (15:00)
[2021-03-10 16:34] VITALS: BP 149/91; PULSE 75; TEMP 98.8
== END 2021-03-10 17:50 | disposition home or self-care (01) ==
LOC: FER 14:20 → FM/S 21:07 → UNDOADMOB 21:07 → FM/S 03-08 17:07
PROVIDERS: ADMIT Hospitalist; ATTEND Nurse Practitioner Acute Care
PROC: 3E033NZ Introduction of Analgesics, Hypnotics, Sedatives into Peripheral Vein, Percutaneous Approach (ICD-10-PCS; principal; 2021-03-07)
PROC: 3E033GC Introduction of Other Therapeutic Substance into Peripheral Vein, Percutaneous Approach (ICD-10-PCS; 2021-03-07)
PROC: 3E0337Z Introduction of Electrolytic and Water Balance Substance into Peripheral Vein, Percutaneous Approach (ICD-10-PCS; 2021-03-07)
DX: I48.91 Unspecified atrial fibrillation (principal); R07.9 Chest pain, unspecified; I10 Essential (primary) hypertension; Z85.46 Personal history of malignant neoplasm of prostate; Z86.73 Personal history of transient ischemic attack (TIA), and cerebral infarction without residual deficits; F10.10 Alcohol abuse, uncomplicated; Z79.01 Long term (current) use of anticoagulants; Z87.891 Personal history of nicotine dependence; R41.82 Altered mental status, unspecified; F90.9 Attention-deficit hyperactivity disorder, unspecified type; I63.9 Cerebral infarction, unspecified; M54.9 Dorsalgia, unspecified; S62.609A Fracture of unspecified phalanx of unspecified finger, initial encounter for closed fracture; R29.898 Other symptoms and signs involving the musculoskeletal system; E16.2 Hypoglycemia, unspecified; S91.331A Puncture wound without foreign body, right foot, initial encounter; K59.4 Anal spasm; M43.6 Torticollis; R60.0 Localized edema
CPT/HCPCS: 36415; 71045-TC-FY; 73700-TC-RT; 78452-TC; 80048; 80053; 81003; 82550; 83735; 84484; 85025; 87086; 93005; 93017; 93306-TC; 93970-TC; 99285-25; A9502; C9803-CS; G0378; J2785; U0003; U0005